=== PATIENT | female | born 1950 | race Caucasian/White ===

== ENCOUNTER 2018-12-26 12:08 | Observation (INO) | payer OTHER, BC ==
--- NOTE | 2018-12-26 13:47 | EDPHY ---
H & P Smoking Status: Former smoker Time Seen by Provider: 12/26/18 13:21 HPI/ROS: Chief complaint. Coughing up blood HPI. 60-year-old female presents emergency department with coughing up blood today. She was discharged yesterday from [facility]. She apparently had a lung cancer tumor pressing on the superior vena cava calling causing swelling to her face and arm and right breast. She had stents placed. She takes Xarelto as a blood thinner but has not taken any Xarelto since yesterday morning. This morning she spit up blood twice. No chest pain or shortness of breath. No fever cough. No abdominal pain or vomiting. She believes that she coughed the blood. No unusual leg pain or swelling ROS 10 systems were reviewed and negative with the exception of the elements mentioned in the history of present illness (David Schultz) Past Medical/Surgical History: Lung cancer, COPD, CHF, diabetes, pneumonia (David Schultz) Social History: Single, nonsmoker, no alcohol (David Schultz) Physical Exam: General Appearance: Alert well-developed female mild distress vital signs are stable Eyes: Pupils equal and round no pallor or injection. ENT, no evidence of bleeding from the nose. Pharynx without injection or evidence of blood Respiratory: There are no retractions, lungs are clear to auscultation. Cardiovascular: Regular rate and rhythm. Gastrointestinal: Abdomen is soft and nontender, no masses, bowel sounds normal. Neurological: Awake and alert, sensory and motor exams grossly normal. Skin: Warm and dry, no rashes. Musculoskeletal: Neck is supple nontender. Extremities symmetrical, full range of motion. Psychiatric: Patient is oriented X 3, there is no agitation. (David Schultz) Constitutional: Initial Vital Signs Temperature (C) 37.1 C 12/26/18 12:20 Heart Rate 90 12/26/18 12:20 Respiratory Rate 16 12/26/18 12:20 Blood Pressure 129/77 H 12/26/18 12:20 O2 Sat (%) 95 12/26/18 12:20 O2 Delivery Mode Nasal Cannula O2 (L/minute) 4 Allergies/Adverse Reactions: eszopiclone [From Lunesta] Allergy (Verified 12/26/18 12:19) topiramate [From Topamax] Allergy (Verified 12/26/18 12:19) Medical Decision Making - Diagnostics Imaging Results: Imaging Impressions Chest X-Ray 12/26/18 13:50 Impression: New right basilar atelectasis and trace right pleural effusion. Chest/Thorax CTA 12/26/18 14:30 Impression: 1. No evidence of acute pulmonary embolism. 2. Right hilar mass compresses and deforms and potentially is invading the lower trachea and right main bronchus. Potentially the etiology for hemoptysis. 3. Right middle lobe and right lower lobe atelectasis has not significantly changed. 4. New bilateral brachiocephalic vein and superior vein stents. The stents are moderately compressed by the right hilar mass. Findings discussed with Emergency Department physician, Dr. David Schultz on December 26, 2018 at 1639 hours. Chest x-ray interpreted by me shows right basilar atelectasis with trace right pleural effusion (David Schultz) Procedures: IV normal saline, monitor (David Schultz) ED Course/Re-evaluation: 1500: Patient is signed out to me at change of shift by Dr. Schultz. Patient is awaiting CT imaging. Of note the patient was anemic with hematocrit of 28. Previous hematocrit was 31. Patient also has hyponatremia with a sodium of 130. I compared this with previous value of 128. CT angio chest: Please refer the dictated report by Dr. Garay. There is no pulmonary embolus. Patient does have a noted mass. There is no active extravasation. The stents as visualized appear to be in good placement. I discussed the results with the patient. I answered all her questions. I contacted her oncologist. Patient requested and was given food I discussed case with Dr. Bowers from Oncology. She recommended admission. I discussed this plan with the patient. I answered all her questions. I discussed the case with Dr. Payne from the hospitalist service. (Mary Garcia) Differential Diagnosis: My differential includes but is not limited to bronchitis, pneumonia, pulmonary embolus, upper GI bleed, Milly-Love tear, peptic ulcer disease (Mary Garcia) Care Turn Over: Care is turned over to Dr. Garcia at 3:00 p.m. (David Schultz) - Data Points Laboratory Results: Laboratory Results 12/26/18 13:25 12/26/18 13:25 12/26/18 12/26/1812/26/19 13:25 13:25 13:25 WBC 6.05 10^3/uL 10^3/uL (3.80-9.50) RBC 3.57 10^6/uL L 10^6/uL (4.18-5.33) Hgb 8.9 g/dL L g/dL (12.6-16.3) Hct 28.5 % L % (38.0-47.0) MCV 79.8 fL L fL (81.5-99.8) MCH 24.9 pg L pg (27.9-34.1) MCHC 31.2 g/dL L g/dL (32.4-36.7) RDW 17.0 % H % (11.5-15.2) Plt Count 161 10^3/uL 10^3/uL (150-400) MPV 9.8 fL fL (8.7-11.7) Neut % (Auto) 74.8 % H % (39.3-74.2) Lymph % (Auto) 16.0 % % (15.0-45.0) Owen % (Auto) 7.8 % % (4.5-13.0) Eos % (Auto) 0.8 % % (0.6-7.6) Baso % (Auto) 0.3 % % (0.3-1.7) Nucleat RBC Rel Count 0.0 % % (0.0-0.2) Absolute Neuts (auto) 4.52 10^3/uL 10^3/uL (1.70-6.50) Absolute Lymphs (auto) 0.97 10^3/uL L 10^3/uL (1.00-3.00) Absolute Monos (auto) 0.47 10^3/uL 10^3/uL (0.30-0.80) Absolute Eos (auto) 0.05 10^3/uL 10^3/uL (0.03-0.40) Absolute Basos (auto) 0.02 10^3/uL 10^3/uL (0.02-0.10) Absolute Nucleated RBC 0.00 10^3/uL 10^3/uL (0-0.01) Immature Gran % 0.3 % % (0.0-1.1) Immature Gran # 0.02 10^3/uL 10^3/uL (0.00-0.10) PT 14.5 SEC SEC (12.0-15.0) INR 1.18 H (0.83-1.16) APTT 40.3 SEC H SEC (23.0-38.0) D-Dimer 1.72 ug/mLFEU H ug/mLFEU (0.00-0.50) Sodium 130 mEq/L L mEq/L (135-145) Potassium 3.9 mEq/L mEq/L (3.5-5.2) Chloride 91 mEq/L L mEq/L (97-110) Carbon Dioxide 29 mEq/l mEq/l (22-31) Anion Gap 10 mEq/L mEq/L (6-14) BUN 12 mg/dL mg/dL (7-23) Creatinine 0.7 mg/dL mg/dL (0.6-1.0) Estimated GFR > 60 Glucose 291 mg/dL H mg/dL (70-100) Calcium 8.5 mg/dL mg/dL (8.5-10.4) Medications Given: Discontinued Medications Sodium Chloride (Ns) 500 mls @ 0 mls/hr IV EDNOW ONE; Wide Open PRN Reason: Protocol Stop: 12/26/18 14:35 Last Admin: 12/26/18 15:06 Dose: 500 mls Departure - Departure Disposition: [facility] Inpatient Acute Clinical Impression: Hemoptysis Condition: Good Referrals: NONE *PRIMARY CARE P,. [Primary Care Provider] - As per Instructions
[2018-12-26 13:56] LABS: PLATELET COUNT 161 10^3/uL (150-400)
[2018-12-26 14:05] LABS: INR 1.18 (0.83-1.16); PROTIME(PATIENT) 14.5 SEC (12.0-15.0)
[2018-12-26] MEDS ORDERED: NS 500 ML IV ONE (14:34)
[2018-12-26] MEDS ORDERED: IOPAMIDOL (ISOVUE 370) 100 ML BTL IV ONE (15:07)
[2018-12-26] MEDS ORDERED: CEFAZOLIN 2 GM/DEXTROSE/100 ML BAG IV ONE (17:10)
[2018-12-26] MEDS ORDERED: ONDANSETRON 4 MG/2 ML VIAL ONE (17:11)
[2018-12-26] MEDS ORDERED: ONDANSETRON 4 MG/2 ML VIAL IVP PRN (18:08)
[2018-12-26] MEDS ORDERED: ONDANSETRON DISINTEGRATING 4 MG TAB PO PRN ×2 (18:08→18:44)
[2018-12-26] MEDS ORDERED: ACETAMINOPHEN 325 MG TAB PO PRN (18:08)
[2018-12-26] MEDS ORDERED: IPRATROPIUM/ALBUTEROL 3 ML DEYVIAL ONE (18:18)
--- NOTE | 2018-12-26 19:16 | GHP ---
[f rep st] HISTORY AND PHYSICAL DATE OF ADMISSION: 12/26/2018 Patient is a pleasant 68-year-old female with a relatively recent diagnosis of lung cancer in the rig ht hilum, was diagnosed because she had some shortness of breath. She has some chest imaging and sub sequently was admitted to the hospital. It sounds like [facility] in [place] where she g ets a lot of her care with the tissue biopsy. She has seen Dr. Palmer here and was going to begin radiation treatment. She was recently admitted there for what sounds like superior vena cava syndrome and had stents place d in her superior vena cava in the left brachiocephalic vein. She was due to start Xarelto for what sounds like VT prophylaxis from the stents which she has not started yet. She does take a daily aspi rin. She was discharged from the hospital yesterday. This morning, she had a couple episodes of neetu ght red blood of hemoptysis. They were probably about an inch and half or so in diameter. There was no mucus with it. She is not having fever, chills. She has not any more dyspneic than usual. This is the first time this has happened. REVIEW OF SYSTEMS: Complete 10-point review of systems conducted and negative except as noted in HPI . PAST MEDICAL HISTORY: Seizure disorder of uncertain etiology, recently diagnosed lung cancer, COPD, heart failure of uncertain type, history of peptic ulcer disease, diabetes. ALLERGIES: Lunesta and Topamax. HOME MEDICATIONS: Aspirin, albuterol, amitriptyline, ascorbic acid, Bumex, cyanocobalamin, duloxetin e, folic acid, Neurontin 800 three times daily, insulin, Duo nebs, levetiracetam, levocetirizine, met oclopramide, montelukast, morphine sulfate 60 daily, this is extended-release; Percocet 10/325, panto prazole, pramipexole, pyridoxine, simvastatin, spironolactone, sucralfate. SOCIAL HISTORY: She is a former smoker. Originally from [facility]. Daughter works here in [employer]. FAMILY HISTORY: Parents . PHYSICAL EXAMINATION: VITAL SIGNS: Temp 36.3, blood pressure 183/81, pulse 80, breathing times a minute, 97% on 4 L. GENERAL: No acute distress. HEENT: Sclerae anicteric. Oropharynx clear. Mucous membranes moist. NECK: Supple. No lymphadenopathy or JVD. LUNGS: Clear to auscultation bilaterally. HEART: S1, S2. ABDOMEN: Soft, nontender, nondistended. LOWER EXTREMITIES: Edema, brittni ves nontender. SKIN: Without rash. NEUROLOGIC: Nonfocal. BREAST: Her right breast remains a bit rip atous and erythematous. This was much more swollen with her SVC syndrome. CTA of the chest shows patent stents with some extrinsic compression. Unchanged hilar mass and no pu lmonary embolism. Chest x-ray shows clear lungs, right hilar mass. I have discussed the case with Dr. David Schultz. LABS: Sodium 130, potassium 3.9, chloride 91, bicarb 29, BUN 12, creatinine 0.7, glucose 291. D-dim er is elevated at 1.7. INR is 1.2. White count 6, hematocrit 28.5. Her previous was 31.5 about 2 w eeks ago. Platelets are 161,000. ASSESSMENT AND PLAN: 68-year-old female, recently diagnosed with lung cancer, here with hemoptysis. 1. Hemoptysis. I suspect this is secondary to either the mass eroding into the airway which is ment ioned on the CAT scan. This may be prompted somewhat by the reperfusion of the mass from the venous stents. For now, she is no longer having hemoptysis. I will hold her aspirin, not start her Xarelto and follow her progress. She does not have pulmonary embolism. 2. Hyponatremia. This is mild, will follow. 3. Anemia. This is microcytic. I will check iron studies in the morning. 4. Lung cancer. Is due to start radiation on Thursday. I do not see this as a contraindication. 5. Chronic obstructive pulmonary disease. She is currently on oxygen. Will continue inhalers. 6. Heart failure. I suspect this is diastolic heart failure. We will follow. 7. History of transient ischemic attack. I am going to hold her aspirin given her hemoptysis. 8. Prophylaxis SCDs. Pharmacologic prophylaxis contraindicated. DISPOSITION: Observation status. To be seen by Oncology in the morning. /[id number]/MODL
[2018-12-26] MEDS: oxyCODONE IR 5 MG TAB PO PRN (19:40)
[2018-12-26] MEDS: OXYCODONE/APAP 5/325 TAB PO PRN (19:40)
[2018-12-26] MEDS: SUCRALFATE 1 GM TAB PO SCH (20:23)
[2018-12-26] MEDS: GABAPENTIN 400 MG CAP PO SCH (20:23)
[2018-12-26] MEDS: levETIRAcetam 250 MG TAB PO SCH (20:23)
[2018-12-26] MEDS: METOCLOPRAMIDE 10 MG TAB PO SCH (20:24)
[2018-12-26] MEDS: PANTOPRAZOLE SODIUM 40 MG TAB PO SCH (20:24)
[2018-12-26] MEDS: PRAMIPEXOLE 1 MG TAB PO SCH (20:24)
[2018-12-26] MEDS ORDERED: INSULIN GLARGINE 100 UNITS/ML UNIT SC SCH (21:00)
[2018-12-26] MEDS ORDERED: AMITRIPTYLINE HCL 10 MG TAB PO SCH (21:00)
[2018-12-26] MEDS: ALBUTEROL 60 PUFFS/8 GM MDI IH PRN (21:56)
[2018-12-26] MEDS: IPRATROPIUM/ALBUTEROL 3 ML DEYVIAL IH PRN (21:59)
[2018-12-27] MEDS: ALBUTEROL 60 PUFFS/8 GM MDI IH PRN (04:25)
[2018-12-27 05:12] LABS: PLATELET COUNT 179 10^3/uL (150-400)
[2018-12-27] MEDS: IPRATROPIUM/ALBUTEROL 3 ML DEYVIAL IH PRN ×2 (05:30→09:10)
[2018-12-27] MEDS: SUCRALFATE 1 GM TAB PO SCH ×2 (05:33→13:21)
[2018-12-27] MEDS: METOCLOPRAMIDE 10 MG TAB PO SCH ×2 (05:33→13:21)
[2018-12-27] MEDS: GABAPENTIN 400 MG CAP PO SCH (08:17)
[2018-12-27] MEDS: OXYCODONE/APAP 5/325 TAB PO PRN ×2 (08:20→14:45)
[2018-12-27] MEDS: oxyCODONE IR 5 MG TAB PO PRN ×2 (08:20→14:45)
[2018-12-27] MEDS: PANTOPRAZOLE SODIUM 40 MG TAB PO SCH (08:21)
[2018-12-27] MEDS: PRAMIPEXOLE 1 MG TAB PO SCH (08:33)
[2018-12-27] MEDS: levETIRAcetam 250 MG TAB PO SCH (08:33)
[2018-12-27] MEDS ORDERED: MONTELUKAST SODIUM 10 MG TAB PO SCH (09:00)
[2018-12-27] MEDS ORDERED: BUMETANIDE 2 MG TAB PO SCH (09:00)
[2018-12-27] MEDS ORDERED: SPIRONOLACTONE 25 MG TAB PO SCH (09:00)
[2018-12-27] MEDS ORDERED: DULoxetine 60 MG CAP PO SCH (09:00)
[2018-12-27] MEDS ORDERED: morphINE SR 30 MG TAB PO SCH (09:00)
[2018-12-27] MEDS ORDERED: FOLIC ACID 1 MG TAB PO SCH (09:00)
[2018-12-27] MEDS ORDERED: ATORVASTATIN CALCIUM 20 MG TAB PO SCH (09:00)
[2018-12-27] MEDS ORDERED: CYANO/VITAMIN B12 100 MCG TAB PO SCH (09:00)
[2018-12-27] MEDS ORDERED: Herbals/Supplements -Info Only PO SCH (09:00)
[2018-12-27] MEDS ORDERED: CETIRIZINE 10 MG TAB PO SCH (09:00)
[2018-12-27] MEDS ORDERED: ASCORBIC ACID 500 MG TAB PO SCH (09:00)
[2018-12-27] MEDS ORDERED: PYRIDOXINE HCL 100 MG TAB PO SCH (09:00)
[2018-12-27 11:32] VITALS: BP 144/62
--- NOTE | 2018-12-27 13:53 | PDCONSULT ---
Asphalt Distributor Operator Note: Hematology/oncology consultation note Reason for consultation: Hemoptysis with no non-small cell lung cancer History of present illness: Flor is a 68-year-old female with history of non-small cell lung cancer is admitted for hemoptysis. She is known to our practice and follows Dr. Rony Palmer. She initially presented November of 2018 with symptoms of worsening shortness of breath. She had a CT of the chest that demonstrated a right perihilar mass with associated lymphadenopathy. She did have a biopsy that demonstrated a non-small cell lung cancer that was TTF 1 negative. The plan is to proceed with chemoradiation with carbotaxol. Radiation is to start tomorrow. She was admitted to [facility] for 3 episodes of hemoptysis in quitting to a tsp worth. Her symptoms have since resolved. Her blood counts were stable. She did start aspirin prior to admission due to a recent brachiocephalic stent placement at [facility] due to concerns for SVC syndrome. Past medical and surgical history: Non-small cell lung cancer COPD Diabetes Congestive heart failure Cirrhosis Family history: Noncontributory Social history: She has a 50 year pack year smoking quit in June 2018. She previously lived in [place] and recently moved to [place] in May 2018. Allergies: Reviewed in the EMR Medications: Reviewed in the EMR Review of systems: 12 point review systems was obtained and was otherwise Physical examination: Temp Pulse Resp BP Pulse Ox 36.7 C 84 18 144/62 H 95 12/27/18 11:24 12/27/18 11:24 12/27/18 11:24 12/27/18 11:24 12/27/18 11:24 O2 (L/minute) 5 General: Pleasant-appearing female in no acute distress HEENT: Oropharynx clear extra movements intact Pulmonary: Clear to auscultation bilaterally scattered wheezing noted Cardiovascular: Regular rhythm no murmurs gallops or rubs Psych: Appropriate affect Neuro: Moving all extremities Skin: No skin lesions Abdomen: Soft nontender nondistended bowel sounds are present Extremities: No cyanosis clubbing or edema WBC 6.25 10^3/uL (3.80-9.50) 12/27/18 04:20 RBC 3.76 10^6/uL (4.18-5.33) L 12/27/18 04:20 Hgb 9.0 g/dL (12.6-16.3) L 12/27/18 04:20 Hct 30.1 % (38.0-47.0) L 12/27/18 04:20 MCV 80.1 fL (81.5-99.8) L 12/27/18 04:20 MCH 23.9 pg (27.9-34.1) L 12/27/18 04:20 MCHC 29.9 g/dL (32.4-36.7) L 12/27/18 04:20 RDW 17.2 % (11.5-15.2) H 12/27/18 04:20 Plt Count 179 10^3/uL (150-400) 12/27/18 04:20 MPV 10.0 fL (8.7-11.7) 12/27/18 04:20 Neut % (Auto) 73.0 % (39.3-74.2) 12/27/18 04:20 Lymph % (Auto) 16.5 % (15.0-45.0) 12/27/18 04:20 Barton % (Auto) 8.6 % (4.5-13.0) 12/27/18 04:20 Eos % (Auto) 1.1 % (0.6-7.6) 12/27/18 04:20 Baso % (Auto) 0.3 % (0.3-1.7) 12/27/18 04:20 Nucleat RBC Rel Count 0.0 % (0.0-0.2) 12/27/18 04:20 Absolute Neuts (auto) 4.56 10^3/uL (1.70-6.50) 12/27/18 04:20 Absolute Lymphs (auto) 1.03 10^3/uL (1.00-3.00) 12/27/18 04:20 Absolute Monos (auto) 0.54 10^3/uL (0.30-0.80) 12/27/18 04:20 Absolute Eos (auto) 0.07 10^3/uL (0.03-0.40) 12/27/18 04:20 Absolute Basos (auto) 0.02 10^3/uL (0.02-0.10) 12/27/18 04:20 Absolute Nucleated RBC 0.00 10^3/uL (0-0.01) 12/27/18 04:20 Immature Gran % 0.5 % (0.0-1.1) 12/27/18 04:20 Immature Gran # 0.03 10^3/uL (0.00-0.10) 12/27/18 04:20 PT 14.5 SEC (12.0-15.0) 12/26/18 13:25 INR 1.18 (0.83-1.16) H 12/26/18 13:25 APTT 40.3 SEC (23.0-38.0) H 12/26/18 13:25 D-Dimer 1.72 ug/mLFEU (0.00-0.50) H 12/26/18 13:25 Sodium 132 mEq/L (135-145) L 12/27/18 04:20 Potassium 4.4 mEq/L (3.5-5.2) 12/27/18 04:20 Chloride 97 mEq/L (97-110) 12/27/18 04:20 Carbon Dioxide 26 mEq/l (22-31) 12/27/18 04:20 Anion Gap 9 mEq/L (6-14) 12/27/18 04:20 BUN 10 mg/dL (7-23) 12/27/18 04:20 Creatinine 0.6 mg/dL (0.6-1.0) 12/27/18 04:20 3/ Estimated GFR > 60 12/27/18 04:20 Glucose 154 mg/dL (70-100) H 12/27/18 04:20 POC Glucose 150 mg/dL (70-100) H 12/27/18 08:53 Calcium 8.8 mg/dL (8.5-10.4) 12/27/18 04:20 Magnesium 1.8 mg/dL (1.6-2.3) 12/27/18 04:20 Iron 26.0 mcg/dL (37.0-170.0) L 12/27/18 04:20 TIBC 389 ug/dL (260-490) 12/27/18 04:20 Iron Saturation 7 % (20-55) L 12/27/18 04:20 Ferritin 13.8 ng/mL (6.2-264.0) 12/27/18 04:20 12/26/2018 CT of the chest demonstrates a 7 x 5.5cm right hilar mass. Assessment plan Flor is a 68-year-old female with history of stage III non-small cell lung cancer who was admitted for hemoptysis. 1. Hemoptysis secondary to lung cancer: Her hemoglobin is stable hemoptysis has resolved. I explained to her that some of this could be related to her recent aspirin initiation. I recommend holding aspirin and Xarelto. We did review the risk of InStent thrombosis with regards to venous clots. Given the hemoptysis I would hold her anti-platelet anticoagulation. She needs to start on radiation which is scheduled for tomorrow. I will have her follow-up with Dr. Palmer this week. She is to return back to the hospital for hemoptysis worsens. 2. Non-small cell lung cancer, stage III: She is plan to start chemoradiation 3. COPD: Stable All questions were answered. She voiced understanding the plan. She was appreciate of my care today.
--- NOTE | 2018-12-27 13:58 | ASMTLACE ---
LACE Length of stay for Answers: Less than 1 day current admission Acuity / Level of Answers: No Care: Did the patient have an inpatient admission? Comorbidities - select Answers: Any tumor (including all that apply lymphoma or leukemia) Chronic pulmonary disease Congestive heart failure Diabetes (uncontrolled or controlled) Peptic ulcer disease Other Notes: Seizure disorder # of Emergency department Answers: 1-2 visits in the last 6 months Score: 11 Date Signed: 12/27/2018 01:57 PM Electronically Signed By:OFELIA Magana
--- NOTE | 2018-12-27 14:06 | ASDISCHSUM ---
Discharge Information Plan Status:Home with No Needs Medically Cleared to Leave:12/27/2018 Discharge Date:12/27/2018 CM D/C Disposition:Home, Routine, Self-Care ADT D/C Disposition:Home, Routine, Self-Care Projected Discharge Date:12/27/2018 Transportation at D/C:Family Discharge Delay Reason: Follow-Up Date:12/27/2018 Discharge Slot: Final Diagnosis: Placement Information Patient Contact Information Contact Name:HEATHER Relationship:Daughter Address: Work Phone: City: [facility] Phone: State/Zip Code: Email: Financial Information Financial Class:Medicare Primary Plan Desc:MEDICARE OUTPATIENT Primary Plan Number:[id number] Secondary Plan Desc: OUT OF STATE INDEMNITY Secondary Plan Number:[id number] Assessment Information LACE LACE Length of stay for Answers: Less than 1 day current admission Acuity / Level of Answers: No Care: Did the patient have an inpatient admission? Comorbidities - select Answers: Any tumor (including all that apply lymphoma or leukemia) Chronic pulmonary disease Congestive heart failure Diabetes (uncontrolled or controlled) Peptic ulcer disease Other Notes: Seizure disorder # of Emergency department Answers: 1-2 visits in the last 6 months Score: 11 Date Signed: 12/27/2018 01:57 PM Electronically Signed By:OFELIA Magana Case Management Discharge Plan Note Case Management Discharge Discharge Order Complete? Answers: Yes Patient to Obtain Answers: Independently Medications Transportation Arranged Answers: Family/Friends Discharge Comments Notes: Pt was admitted with hemoptysis which has resolved. She was discharged from [facility] yesterday after placement of a brachiocephalic stent. She has a new dx of lung CA and is scheduled to begin radiation tomorrow. She will follow up with her oncologist. Pt is discharging home today with no CM needs. Date Signed: 12/27/2018 02:05 PM Electronically Signed By:OFELIA Magana Intervention Information Intervention Type:*MARIUM-Signed Date of Service:12/27/2018 12:18 PM Patient Type:Observation Staff Member:Barbara Connors Hours: Discipline: Severity: Comment:
--- NOTE | 2018-12-27 15:19 | GDS ---
[f rep st] DISCHARGE SUMMARY DISCHARGE DIAGNOSES: 1. Hemoptysis. 2. Hyponatremia. 3. Iron deficiency anemia. 4. 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 5. Chronic obstructive pulmonary disease. 6. Diastolic heart failure. 7. History of transient ischemic attack. 8. Chronic hypoxic respiratory failure on 4 liters. HISTORY OF PRESENT ILLNESS: A 68-year-old female with recent diagnosis of lung cancer in the right hilum. She is followed by Dr. Palmer, and they plan to start radiation treatment tomorrow. She was admitted to [facility] for SVC syndrome and had stents placed in the SVC and left brachiocephalic vein. She was due to start Xarelto for prophylaxis, but she had not started this medication. She has been taking aspirin 325 daily. She was discharged from the hospital yesterday. Yesterday after going home, she had 3 episodes of hemoptysis, the size of teaspoons. None since admission. No dizziness or lightheadedness. 1. Hemoptysis. resolved. CTA negative for pulmonary embolism, but showed a right hilar mass compressing and invading lower trachea and right main bronchus. At this time would hold all anticoagulation. Can likely resume baby aspirin later this week. She is to see Dr. Palmer on the . 2. SCC lung cancer complicated by SVC syndrome: Stents recently placed at [facility] and ultimate treatment would be radiation and chemotherapy. Hold off anticoagulation. Hypovolemic hyponatremia. Sodium at baseline 132. 3. History of TIA: Statin. Holding aspirin. DISPOSITION: Patient is stable for discharge home. MEDICATIONS: Hold aspirin and Xarelto. FOLLOWUP: Dr. Palmer. PHYSICAL EXAMINATION: VITAL SIGNS: Temperature 36.7, blood pressure 144/60, heart rate in the 80s, respirations 18, 95% on 5 L. GENERAL: She is well appearing, sitting in bed in no acute distress. HEENT: PERRLA. Moist mucous membranes. CV: Diminished breath throughout. No wheezes or crackles. ABDOMEN : Soft, nontender, nondistended. Positive bowel sounds. MUSCULOSKELETAL: 5/ 5 upper lower extremity strength. NEURO: 2 through 12 intact. PSYCH: Alert and oriented x3. TIME SPENT ON DISCHARGE: Greater than 30 minutes at bedside evaluating patient and coordinating discharge. Case discussed with Dr. Campos with Oncology. /[id number]/MODL MTDD
== END 2018-12-27 15:34 | disposition home or self-care (01) ==
LOC: F1N 17:35
PROVIDERS: ADMIT Internal Medicine; ATTEND Internal Medicine
DX: C34.01 Malignant neoplasm of right main bronchus (principal); R04.2 Hemoptysis; D50.9 Iron deficiency anemia, unspecified; J44.9 Chronic obstructive pulmonary disease, unspecified; I50.30 Unspecified diastolic (congestive) heart failure; Z86.73 Personal history of transient ischemic attack (TIA), and cerebral infarction without residual deficits; E87.1 Hypo-osmolality and hyponatremia
CPT/HCPCS: 71046; 71275; 96360; 96372; 97165; 99285; G0378; J1815; Q9967; J0690; J2405

== ENCOUNTER 2019-01-04 08:53 | Day surgery (SDC) | payer OTHER, BC ==
[2019-01-04] MEDS ORDERED: MIDAZOLAM 2 MG/2 ML VIAL IVP PRN (08:56)
[2019-01-04] MEDS ORDERED: FLUMAZENIL 0.5 MG/5 ML MDV IVP PRN (08:56)
[2019-01-04] MEDS ORDERED: NALOXONE HCL 0.4 MG/ML INJ IVP PRN (08:56)
[2019-01-04] MEDS ORDERED: fentaNYL 100 MCG/2 ML INJ IVP PRN (08:56)
[2019-01-04] MEDS ORDERED: ceFAZolin 2 GM/DEXTROSE 100 ML IV ONE (08:56)
[2019-01-04] MEDS ORDERED: NS 1,000 ML IV SCH (09:00)
[2019-01-04] MEDS ORDERED: LIDOCAINE 1% 300 MG/30 ML SDV ONE (09:01)
[2019-01-04 09:54] LABS: INR 1.03 (0.83-1.16); PROTIME(PATIENT) 13.1 SEC (12.0-15.0)
--- NOTE | 2019-01-04 10:27 | PDPROPOC ---
Sedation Plan of Care Sedation Plan of Care: vital signs stable, mental status noted, patient educated of risks, benefits, alternatives, patient can tolerate sedation ASA Classification: ASA 2 Planned drugs: fentanyl, midazolam Mallampati Score: Class 3 Mallampati Reference Image: Patient passed 3-3-2 rule?: Yes
--- NOTE | 2019-01-04 10:28 | PDRADPRE ---
Radiology History & Physical Indication for procedure: cancer (Need for termite technician central access for chemotherapy) Home medications: Albuterol [Proventil Inhaler HFA (*)] 1 - 2 puffs IH Q4H PRN 12/26/18 [Last Taken 01/04/19] Amitriptyline HCl 10 mg PO HS 12/26/18 [Last Taken 01/04/19] Ascorbic Acid [Vitamin C 500 mg (*)] 500 mg PO DAILY 12/26/18 [Last Taken ] Bumetanide 2 mg PO DAILY 12/26/18 [Last Taken 12/26/18] Cyanocobalamin [Vitamin B12 (*)] 300 mcg PO DAILY 12/26/18 [Last Taken 01/04/19] Duloxetine HCl 60 mg PO DAILY 12/26/18 [Last Taken 01/04/19] Folic Acid [Folic Acid 1 MG (*)] 1 mg PO DAILY 12/26/18 [Last Taken 01/04/19] Gabapentin [Gabapentin 800 mg] 800 mg PO TID 12/26/18 [Last Taken 01/04/19] Herbals/Supplements -Info Only 1 ea PO DAILY 12/26/18 [Last Taken 01/04/19] Insulin Degludec [Tresiba Flextouch U-100] 16 units SC HS 12/26/18 [Last Taken 01/04/19] Ipratropium/Albuterol [Duoneb (*)] 3 ml IH Q4H PRN 12/26/18 [Last Taken 01/04/19 ] Levocetirizine Dihydrochloride [24Hr Allergy Relief] 5 mg PO DAILY 12/26/18 [ Last Taken 01/04/19] Metoclopramide [Reglan 10 mg tab (*)] 15 mg PO QID 12/26/18 [Last Taken 01/04/19 ] Montelukast Sodium [Singulair 10 mg (*)] 10 mg PO DAILY 12/26/18 [Last Taken ] Morphine Sulfate [Morphine Sulfate ER] 60 mg PO BID 12/26/18 [Last Taken 08:00] Ondansetron HCl 4 mg PO Q6H PRN 12/26/18 [Last Taken 01/04/19] Pantoprazole Sodium [Protonix 40mg (*)] 40 mg PO BID 12/26/18 [Last Taken ] Pramipexole Di-HCl [Mirapex 1 mg (*)] 1 mg PO TID 12/26/18 [Last Taken 01/04/19] Pyridoxine HCl [Vitamin B-6 100 mg (*)] 100 mg PO DAILY 12/26/18 [Last Taken ] Simvastatin 40 mg PO DAILY 12/26/18 [Last Taken 01/04/19] Spironolactone [Aldactone 25 MG (*)] 25 mg PO DAILY 12/26/18 [Last Taken ] Sucralfate 1 g PO QID 12/26/18 [Last Taken 01/04/19] levETIRAcetam [Keppra 250 mg (*)] 250 mg PO BID 12/26/18 [Last Taken 01/04/19] oxyCODONE HCL/ACETAMINOPHEN [Percocet 10-325 mg Tablet] 1 each PO QID PRN [Last Taken 01/04/19] glipiZIDE [Glipizide] 5 mg PO BIDMEAL 12/27/18 [Last Taken 01/04/19] Aspirin 325 mg (*) 325 mg DAILY 12/30/18 [Last Taken 12/31/18] Breo Ellipta 100-25 Mcg INH 25 mcg PUFF DAILY 01/04/19 [Last Taken 01/04/19] Allergies/Adverse Reactions: eszopiclone [From Lunesta] Allergy (Verified 12/26/18 12:19) topiramate [From Topamax] Allergy (Verified 12/26/18 12:19) Mental status: A&Ox3 Heart exam: regular rate and rhythm Lungs exam: clear to auscultation Mallampati Score: Class 3
[2019-01-04] MEDS ORDERED: ALBUTEROL 3 ML DEYVIAL IH ONE (10:30)
[2019-01-04] MEDS ORDERED: NALOXONE HCL 0.4 MG/ML INJ ONE (10:32)
[2019-01-04] MEDS ORDERED: fentaNYL 100 MCG/2 ML INJ ONE (10:32)
[2019-01-04] MEDS ORDERED: FLUMAZENIL 0.5 MG/5 ML MDV IVP ONE (10:32)
[2019-01-04] MEDS ORDERED: MIDAZOLAM 2 MG/2 ML VIAL ONE (10:32)
[2019-01-04] MEDS ORDERED: ONDANSETRON 4 MG/2 ML VIAL IVP PRN (11:27)
[2019-01-04] MEDS ORDERED: ACETAMINOPHEN 325 MG TAB PO PRN (11:27)
--- NOTE | 2019-01-04 11:29 | PDRADPN ---
Radiology Procedure Note Date of Procedure: 01/04/19 Radiologist: Roldan Jewell Anesthesia: IV Sedation Pre-op Diagnosis: Lung Cancer Post-op Diagnosis: Lung Cancer Indication: Need for care home access for chemotherapy Procedure: Chest port placement Finding(s): Right IJ chest port placed without complication. Bard 8 Fr ClearVue Power Port ok for power injections and external beam radiation therapy. Inf/Abcess present in the surg proc area at time of surgery?: No
[2019-01-04 13:22] VITALS: BP 114/67
== END 2019-01-04 13:18 | disposition home or self-care (01) ==
LOC: FIMAGING 08:53
PROVIDERS: ATTEND Internal Medicine Hematology & Oncology
PROC: 0JH60XZ Insertion of Tunneled Vascular Access Device into Chest Subcutaneous Tissue and Fascia, Open Approach (ICD-10-PCS; principal; 2019-01-04 11:38)
PROC: 02H633Z Insertion of Infusion Device into Right Atrium, Percutaneous Approach (ICD-10-PCS; principal; 2019-01-04 11:38)
DX: Z45.2 Encounter for adjustment and management of vascular access device (principal); C34.90 Malignant neoplasm of unspecified part of unspecified bronchus or lung
CPT/HCPCS: 36561; 99152; C1769; 82947-QW; J0690; J1642; J2250; J2310; J3010; J7613

== ENCOUNTER → 2019-01-11 | Outpatient (CLI) | payer OTHER, BC ==
[~2019-01-11] MED LIST: GADOBUTROL 10 ML VIAL IVP ONE; IOPAMIDOL (ISOVUE 370) 100 ML BTL IV ONE
== END ==
LOC: FIMAGING 01-07 14:46
PROVIDERS: ATTEND Internal Medicine Hematology & Oncology
DX: C34.02 Malignant neoplasm of left main bronchus (principal)
CPT/HCPCS: 76000; J1642; Q9967; A9585

== ENCOUNTER 2019-01-17 22:09 | Emergency (ER) | payer OTHER, BC ==
--- NOTE | 2019-01-17 23:36 | EDPHY ---
H & P Stated Complaint: ams, foul smelling urine possible uti Time Seen by Provider: 01/17/19 22:32 HPI/ROS: Chief Complaint: Possible UTI HPI: 68-year-old woman who is currently being treated for small cell lung cancer, under the care Dr. Palmer. Patient is presenting with foul-smelling urine for the last few days with some dysuria. She has a history of urinary tract infections in the past. Family is notice some increasing confusion as well. No nausea or vomiting. Denies any abdominal pain. She has an appointment with her primary care physician tomorrow but family suggested she be evaluated tonight. No chest pain or shortness of breath. No lightheadedness or fainting. She is currently on chemotherapy, last received it last through her port. ROS: 10 systems were reviewed and were negative except those elements noted in the HPI. PMH: COPD, small cell lung cancer, frequent UTIs Social History: History of smoking Family History: non-contributory Physical Exam: Gen: Awake, Alert, No Distress HEENT: Nose: no rhinorrhea Eyes: PERRLA, EOMI Mouth: Moist mucosa Neck: Supple, no JVD Chest: nontender, lungs clear to auscultation Heart: S1, S2 normal, no murmur Abd: Soft, non-tender, no guarding Back: no CVA tenderness, no midline tenderness Ext: no edema, non-tender Skin: no rash Neuro: CN II-XII intact, Sensation grossly intact, Strength 5/5 in bilateral upper and lower extremities - Personal History Current Tetanus Diphtheria and Acellular Pertussis (TDAP): Yes - Medical/Surgical History Hx Asthma: No Hx Chronic Respiratory Disease: Yes Hx Diabetes: Yes Hx Cardiac Disease: Yes Hx Renal Disease: Yes Hx Cirrhosis: No Hx Alcoholism: No Hx HIV/AIDS: No Hx Splenectomy or Spleen Trauma: No Other PMH: non small cell carcinoma, COPD, CHF, DM2, SHARI, sepsis, PNA - Social History Smoking Status: Former smoker Constitutional: Initial Vital Signs Temperature (C) 37.1 C 01/17/19 22:20 Heart Rate 97 01/17/19 22:20 Respiratory Rate 16 01/17/19 22:20 Blood Pressure 142/79 H 01/17/19 22:20 O2 Sat (%) 97 01/17/19 22:20 O2 Delivery Mode Room Air O2 (L/minute) 4 Allergies/Adverse Reactions: eszopiclone [From Lunesta] Allergy (Verified 12/26/18 12:19) topiramate [From Topamax] Allergy (Verified 12/26/18 12:19) Home Medications: Medication Instructions Recorded Albuterol [Proventil Inhaler HFA 1 - 2 puffs IH Q4H PRN 12/26/18 (*)] Amitriptyline HCl 10 mg PO HS 12/26/18 Ascorbic Acid [Vitamin C 500 mg 500 mg PO DAILY 12/26/18 (*)] Bumetanide 2 mg PO DAILY 12/26/18 Cyanocobalamin [Vitamin B12 (*)] 300 mcg PO DAILY 12/26/18 Duloxetine HCl 60 mg PO DAILY 12/26/18 Folic Acid [Folic Acid 1 MG (*)] 1 mg PO DAILY 12/26/18 Gabapentin [Gabapentin 800 mg] 800 mg PO TID 12/26/18 Herbals/Supplements -Info Only 1 ea PO DAILY 12/26/18 Insulin Degludec [Tresiba 16 units SC HS 12/26/18 Flextouch U-100] Ipratropium/Albuterol [Duoneb (*)] 3 ml IH Q4H PRN 12/26/18 Levocetirizine Dihydrochloride 5 mg PO DAILY 12/26/18 [24Hr Allergy Relief] Metoclopramide [Reglan 10 mg tab 15 mg PO QID 12/26/18 (*)] Montelukast Sodium [Singulair 10 10 mg PO DAILY 12/26/18 mg (*)] Morphine Sulfate [Morphine Sulfate 60 mg PO BID 12/26/18 ER] Ondansetron HCl 4 mg PO Q6H PRN 12/26/18 Pantoprazole Sodium [Protonix 40mg 40 mg PO BID 12/26/18 (*)] Pramipexole Di-HCl [Mirapex 1 mg 1 mg PO TID 12/26/18 (*)] Pyridoxine HCl [Vitamin B-6 100 mg 100 mg PO DAILY 12/26/18 (*)] Simvastatin 40 mg PO DAILY 12/26/18 Spironolactone [Aldactone 25 MG 25 mg PO DAILY 12/26/18 (*)] Sucralfate 1 g PO QID 12/26/18 levETIRAcetam [Keppra 250 mg (*)] 250 mg PO BID 12/26/18 oxyCODONE HCL/ACETAMINOPHEN 1 each PO QID PRN 12/26/18 [Percocet 10-325 mg Tablet] glipiZIDE [Glipizide] 5 mg PO BIDMEAL 12/27/18 Aspirin 325 mg (*) 325 mg DAILY 12/30/18 Breo Ellipta 100-25 Mcg INH 25 mcg PUFF DAILY 01/04/19 Cephalexin [Keflex (*)] 500 mg PO Q6H #28 cap 01/18/19 Medical Decision Making ED Course/Re-evaluation: 68-year-old cancer patient with urinary tract infection. She is not neutropenic. Vital signs are appropriate. She has been given ceftriaxone here. Urine cultures have been sent. Will discharge with Keflex and follow up with her oncologist. - Data Points Laboratory Results: Laboratory Results 01/17/19 23:31 01/17/19 23:31 01/17/19 01/17/19 01/17/19 23:41 23:31 23:31 WBC 3.19 10^3/uL L 10^3/uL (3.80-9.50) RBC 3.56 10^6/uL L 10^6/uL (4.18-5.33) Hgb 9.4 g/dL L g/dL (12.6-16.3) Hct 29.9 % L % (38.0-47.0) MCV 84.0 fL fL (81.5-99.8) MCH 26.4 pg L pg (27.9-34.1) MCHC 31.4 g/dL L g/dL (32.4-36.7) RDW 20.7 % H % (11.5-15.2) Plt Count 139 10^3/uL L 10^3/uL (150-400) MPV 9.8 fL fL (8.7-11.7) Neut % (Auto) 78.5 % H % (39.3-74.2) Lymph % (Auto) 14.7 % L % (15.0-45.0) [place] % (Auto) 5.6 % % (4.5-13.0) Eos % (Auto) 0.6 % % (0.6-7.6) Baso % (Auto) 0.3 % % (0.3-1.7) Nucleat RBC Rel Count 0.0 % % (0.0-0.2) Absolute Neuts (auto) 2.50 10^3/uL 10^3/uL (1.70-6.50) Absolute Lymphs (auto) 0.47 10^3/uL L 10^3/uL (1.00-3.00) Absolute Monos (auto) 0.18 10^3/uL L 10^3/uL (0.30-0.80) Absolute Eos (auto) 0.02 10^3/uL L 10^3/uL (0.03-0.40) Absolute Basos (auto) 0.01 10^3/uL L 10^3/uL (0.02-0.10) Absolute Nucleated RBC 0.00 10^3/uL 10^3/uL (0-0.01) Immature Gran % 0.3 % % (0.0-1.1) Immature Gran # 0.01 10^3/uL 10^3/uL (0.00-0.10) RBC/WBC/PLT Morphology TNP Platelet Estimate TNP Sodium 131 mEq/L L mEq/L (135-145) Potassium 4.0 mEq/L mEq/L (3.5-5.2) Chloride 99 mEq/L mEq/L (97-110) Carbon Dioxide 25 mEq/l mEq/l (22-31) Anion Gap 7 mEq/L mEq/L (6-14) BUN 11 mg/dL mg/dL (7-23) Creatinine 0.6 mg/dL mg/dL (0.6-1.0) Estimated GFR > 60 Glucose 142 mg/dL H mg/dL (70-100) Calcium 8.8 mg/dL mg/dL (8.5-10.4) Urine Color YELLOW Urine Appearance MODERATELY TURBID Urine pH 8.0 H (5.0-7.5) Ur Specific [place] 1.015 (1.002-1.030) Urine Protein NEGATIVE (NEGATIVE) Urine Ketones NEGATIVE (NEGATIVE) Urine Blood NEGATIVE (NEGATIVE) Urine Nitrate POSITIVE H (NEGATIVE) Urine Bilirubin NEGATIVE (NEGATIVE) Urine Urobilinogen 4.0 EU H EU (0.2-1.0) Ur Leukocyte Esterase TRACE H (NEGATIVE) Urine RBC NONE SEEN /hpf /hpf (0-3) Urine WBC 5-10 /hpf H /hpf (0-3) Ur Epithelial Cells TRACE /lpf /lpf (NONE-1+) Urine Bacteria 4+ /hpf H /hpf (NONE SEEN) Urine Glucose NEGATIVE (NEGATIVE) Medications Given: Discontinued Medications Heparin Sodium (Porcine) (Heparin Lock Flush) 500 unit IVP EDNOW ONE Stop: 01/18/19 01:09 Last Admin: 01/18/19 01:11 Dose: 500 unit Ceftriaxone Sodium/Dextrose (Rocephin 1 Gm (Premix)) 50 mls @ 100 mls/hr IV EDNOW ONE PRN Reason: Protocol Stop: 01/18/19 00:34 Last Admin: 01/18/19 00:24 Dose: 50 mls Departure - Departure Disposition: Home, Routine, Self-Care Clinical Impression: Urinary tract infection Condition: Good Instructions: Urinary Tract Infection in Women (ED) Additional Instructions: Follow up with Dr. Palmer, your oncologist tomorrow for further evaluation. Please take your full course of antibiotics. Return to the emergency department for increasing confusion, fevers or chills, chest pain, shortness of breath, weakness, or any other concerns. Referrals: Rony Palmer MD [Medical Doctor] - As per Instructions Prescriptions: Cephalexin [Keflex (*)] 500 mg PO Q6H #28 cap
[2019-01-17 23:47] LABS: PLATELET COUNT 139 10^3/uL (150-400)
[2019-01-18 01:16] VITALS: BP 130/65
== END 2019-01-18 01:14 | disposition home or self-care (01) ==
DX: N39.0 Urinary tract infection, site not specified (principal); C34.90 Malignant neoplasm of unspecified part of unspecified bronchus or lung; Z87.891 Personal history of nicotine dependence
CPT/HCPCS: 96365; 96375; 99284; J0696; J1642

== ENCOUNTER 2019-01-29 07:34 | Inpatient (IN) | payer OTHER, BC ==
[2019-01-29] MEDS ORDERED: NS 1,000 ML IV ONE (07:55)
--- NOTE | 2019-01-29 07:58 | EDPHY ---
H & P Time Seen by Provider: 01/29/19 07:44 HPI/ROS: CHIEF COMPLAINT: Altered mental status Limitations: Altered mental status, unable to provide any clinical history; history via EMS, no family present HISTORY OF PRESENT ILLNESS: 68-year-old female with diabetes and cancer, currently undergoing chemotherapy, presents with altered mental status. She was apparently found by her family this morning covered in urine and feces. The patient is unable to provide any further clinical history. REVIEW OF SYSTEMS: Unable to obtain Source: Patient - Medical/Surgical History Hx Asthma: No Hx Chronic Respiratory Disease: Yes Hx Diabetes: Yes Hx Cardiac Disease: Yes Hx Renal Disease: Yes Hx Cirrhosis: No Hx Alcoholism: No Hx HIV/AIDS: No Hx Splenectomy or Spleen Trauma: No Other PMH: non small cell carcinoma, COPD, CHF, DM2, SHARI, sepsis, PNA - Social History Smoking Status: Former smoker - Physical Exam Exam: General Appearance: Alert, follows commands, tries to answer questions Eyes: Pupils equal and round, no conjunctival pallor or injection ENT, Mouth: Mucous membranes dry Neck: Normal inspection Respiratory: Lungs are clear to auscultation anteriorly Cardiovascular: Regular rate and rhythm Gastrointestinal: Abdomen is soft and nontender Neurological: Alert, oriented to self, nonfocal exam Skin: Warm and dry Extremities: Normal inspection Psychiatric: Mood and affect normal Constitutional: Initial Vital Signs Temperature (C) 36.6 C 01/29/19 09:30 Heart Rate 89 01/29/19 09:30 Respiratory Rate 22 H 01/29/19 09:30 Blood Pressure 165/83 H 01/29/19 09:30 O2 Sat (%) 95 01/29/19 09:30 O2 Delivery Mode Room Air Allergies/Adverse Reactions: eszopiclone [From Lunesta] Allergy (Verified 01/29/19 09:33) topiramate [From Topamax] Allergy (Verified 01/29/19 09:33) Home Medications: Medication Instructions Recorded Albuterol [Proventil Inhaler HFA 2 puffs IH Q4H PRN 12/26/18 (*)] Amitriptyline HCl 10 mg PO HS 12/26/18 Bumetanide 2 mg PO DAILY 12/26/18 Duloxetine HCl 60 mg PO DAILY 12/26/18 Gabapentin [Gabapentin 800 mg] 800 mg PO TID 12/26/18 Herbals/Supplements -Info Only 1 ea PO DAILY 12/26/18 Insulin Degludec [Tresiba 16 units SC HS 12/26/18 Flextouch U-100] Ipratropium/Albuterol [Duoneb (*)] 3 ml IH Q4H PRN 12/26/18 Levocetirizine Dihydrochloride 5 mg PO DAILY 12/26/18 [24Hr Allergy Relief] Metoclopramide [Reglan 10 mg tab 15 mg PO QID 12/26/18 (*)] Montelukast Sodium [Singulair 10 10 mg PO DAILY 12/26/18 mg (*)] Morphine Sulfate [Morphine Sulfate 60 mg PO BID 12/26/18 ER] Ondansetron HCl 4 mg PO Q6H PRN 12/26/18 Pantoprazole Sodium [Protonix 40mg 40 mg PO BID 12/26/18 (*)] Pramipexole Di-HCl [Mirapex 1 mg 1 mg PO TID 12/26/18 (*)] Simvastatin 40 mg PO DAILY 12/26/18 Spironolactone [Aldactone 25 MG 25 mg PO DAILY 12/26/18 (*)] Sucralfate 1 gm PO QID 12/26/18 levETIRAcetam [Keppra 250 mg (*)] 250 mg PO BID 12/26/18 glipiZIDE [Glipizide] 5 mg PO BIDMEAL 12/27/18 Aspirin [Aspirin 325 mg (*)] 325 mg PO DAILY 12/30/18 Fluticasone/Vilanterol [Breo 1 each IH DAILY 01/04/19 Ellipta 100-25 Mcg INH] Dexamethasone [Decadron 4 MG (*)] 4 mg PO BIDMEAL 01/29/19 Diphenoxylate HCl/Atrop Sulf 1 tab PO QID PRN 01/29/19 [Lomotil Tab (*)] Fluticasone Nasal [Flonase Nasal 2 sprays NASAL DAILY 01/29/19 [place] (RX)] Folic Acid [Folic Acid 1 MG (*)] 1 mg PO DAILY 01/29/19 Insulin Aspart [novoLOG] 0 - 4 unit SC AD 01/29/19 Medical Decision Making - Diagnostics Imaging Results: Imaging Impressions Chest X-Ray 01/29/19 07:55 Impression: Negative for acute cardiopulmonary abnormality. Right-sided jugular central venous catheter.. Head CT 01/29/19 07:55 Impression: Normal noncontrast CT of the brain. Results called to Dr. Ai Luo at 8:30 AM at the time of the interpretation. Imaging: Discussed imaging studies w/ scallop binder Radiologist ED Course/Re-evaluation: This pt presents with AMS and dehydration. No localizing signs/sx on exam. IV NS 1 liter given. Will proceed with w/u for AMS. 0845: ED RN had phone conversation with pt's daughter. Pt lives with daughter. Pt found on toilet this am confused. Recently dx'd with UTI, hasn't started Levaquin yet. This is patient's typical behavior when she has a urinary tract infection. Cath UA obtained. No evidence of UTI. CXR reveals no evidence of pneumonia and CT head NAD. Labs also unremarkable, unclear etiology of AMS. Will need admission for further eval. The hospitalist service was consulted for admission. Differential Diagnosis: Altered mental status including but not limited to hypoglycemia, infectious process, electrolyte abnormality, head injury, CVA, and intoxicants. - Data Points Laboratory Results: Laboratory Results 01/29/19 09:00 01/29/19 09:00 01/29/19 01/29/19 01/29/19 09:25 09:00 09:00 WBC 4.52 10^3/uL 10^3/uL (3.80-9.50) RBC 4.21 10^6/uL 10^6/uL (4.18-5.33) Hgb 11.8 g/dL L g/dL (12.6-16.3) Hct 36.7 % L % (38.0-47.0) MCV 87.2 fL fL (81.5-99.8) MCH 28.0 pg pg (27.9-34.1) MCHC 32.2 g/dL L g/dL (32.4-36.7) RDW 23.9 % H % (11.5-15.2) Plt Count 148 10^3/uL L 10^3/uL (150-400) MPV 9.7 fL fL (8.7-11.7) Neut % (Auto) 83.0 % H % (39.3-74.2) Lymph % (Auto) 9.1 % L % (15.0-45.0) [place] % (Auto) 7.5 % % (4.5-13.0) Eos % (Auto) 0.0 % L % (0.6-7.6) Baso % (Auto) 0.0 % L % (0.3-1.7) Nucleat RBC Rel Count 0.0 % % (0.0-0.2) Absolute Neuts (auto) 3.75 10^3/uL 10^3/uL (1.70-6.50) Absolute Lymphs (auto) 0.41 10^3/uL L 10^3/uL (1.00-3.00) Absolute Monos (auto) 0.34 10^3/uL 10^3/uL (0.30-0.80) Absolute Eos (auto) 0.00 10^3/uL L 10^3/uL (0.03-0.40) Absolute Basos (auto) 0.00 10^3/uL L 10^3/uL (0.02-0.10) Absolute Nucleated RBC 0.00 10^3/uL 10^3/uL (0-0.01) Immature Gran % 0.4 % % (0.0-1.1) Seg Neutrophils % 86.0 % % Band Neutrophils % 0.0 % % Lymphocytes % 5.0 % % Monocytes % 9.0 % % Eosinophils % 0.0 % % Basophils % 0.0 % % Metamyelocytes % 0.0 % % Myelocytes % 0.0 % % Promyelocytes % 0.0 % % Blast Cells % 0.0 % % Immature Gran # 0.02 10^3/uL 10^3/uL (0.00-0.10) Absolute Seg Neuts 3.89 10^3/uL 10^3/uL (1.70-6.50) Absolute Band Neuts 0.00 10^3/uL 10^3/uL (0.00-0.70) Absolute Lymphocytes 0.23 10^3/uL L 10^3/uL (1.00-3.00) Absolute Monocytes 0.41 10^3/uL 10^3/uL (0.30-0.80) Absolute Eosinophils 0.00 10^3/uL L 10^3/uL (0.03-0.40) Absolute Basophils 0.00 10^3/uL L 10^3/uL (0.02-0.10) Absolute Metamyelocyte 0.00 10^3/mL 10^3/mL (0.00-0.00) Absolute Myelocytes 0.00 10^3/mL 10^3/mL (0.00-0.00) Absolute Promyelocytes 0.00 10^3/uL 10^3/uL (0.00-0.00) Absolute Plasma Cells 0.00 10^3/uL 10^3/uL (0.00-0.00) Nucleated RBCs 0 /100 WBC /100 WBC (0-0) Absolute Blast Cells 0.00 10^3/uL 10^3/uL (0.00-0.00) Plasma Cells % 0.0 % % Platelet Estimate DECREASED L (ADEQ) Microcytic Cells 1+ H Oval Macrocytes 1+ H Sodium 135 mEq/L mEq/L (135-145) Potassium 4.4 mEq/L mEq/L (3.5-5.2) Chloride 93 mEq/L L mEq/L (97-110) Carbon Dioxide 31 mEq/l mEq/l (22-31) Anion Gap 11 mEq/L mEq/L (6-14) BUN 26 mg/dL H mg/dL (7-23) Creatinine 0.7 mg/dL mg/dL (0.6-1.0) Estimated GFR > 60 Glucose 158 mg/dL H mg/dL (70-100) Calcium 8.9 mg/dL mg/dL (8.5-10.4) Total Bilirubin 1.0 mg/dL mg/dL (0.1-1.4) Conjugated Bilirubin 0.4 mg/dL mg/dL (0.0-0.5) Unconjugated Bilirubin 0.6 mg/dL mg/dL (0.0-1.1) AST 59 IU/L H IU/L (14-46) ALT 47 IU/L IU/L (9-52) Alkaline Phosphatase 86 IU/L IU/L (38-126) Total Protein 7.5 g/dL g/dL (6.3-8.2) Albumin 4.2 g/dL g/dL (3.5-5.0) Specimen Hemolysis 104 Urine Color YELLOW Urine Appearance MODERATELY TURBID Urine pH 7.0 (5.0-7.5) Ur Specific [place] 1.018 (1.002-1.030) Urine Protein NEGATIVE (NEGATIVE) Urine Ketones NEGATIVE (NEGATIVE) Urine Blood NEGATIVE (NEGATIVE) Urine Nitrate NEGATIVE (NEGATIVE) Urine Bilirubin NEGATIVE (NEGATIVE) Urine Urobilinogen NEGATIVE EU EU (0.2-1.0) Ur Leukocyte Esterase NEGATIVE (NEGATIVE) Urine Glucose NEGATIVE (NEGATIVE) Medications Given: Dexamethasone (Decadron) 4 mg PO BIDMEAL KAYLA Stop: 07/28/19 17:59 Last Admin: 01/29/19 17:46 Dose: 4 mg Diphenoxylate HCl/Atropine (Lomotil) 1 tab PO QID PRN PRN Reason: Diarrhea/Loose Stools Stop: 07/28/19 16:16 Last Admin: 01/29/19 17:46 Dose: 1 tab Ceftriaxone Sodium/Dextrose (Rocephin 1 Gm (Premix)) 50 mls @ 100 mls/hr IV DAILY KAYLA PRN Reason: Protocol Stop: 02/28/19 16:29 Last Admin: 01/29/19 16:41 Dose: 50 mls Ondansetron HCl (Zofran) 4 mg IVP Q4HRS PRN PRN Reason: Nausea/Vomiting, Can't Take PO Stop: 07/28/19 11:57 Last Admin: 01/29/19 16:41 Dose: 4 mg Oxycodone/Acetaminophen (Percocet 5/325) 1 tab PO Q4HRS PRN PRN Reason: Pain, Severe Able to Take PO Stop: 02/08/19 16:45 Last Admin: 01/29/19 16:56 Dose: 1 tab Discontinued Medications Sodium Chloride (Ns) 1,000 mls @ 0 mls/hr IV ONCE ONE; Wide Open PRN Reason: Protocol Stop: 01/29/19 07:56 Last Admin: 01/29/19 09:39 Dose: 1,000 mls Departure - Departure Disposition: [facility] Clinical Impression: Altered mental status Qualifiers: Altered mental status type: unspecified Qualified Code(s): R41.82 - Altered mental status, unspecified Condition: Fair
[2019-01-29 09:18] LABS: PLATELET COUNT 148 10^3/uL (150-400)
--- NOTE | 2019-01-29 11:00 | ASMTCMCOM ---
CM Note CM Note Notes: Reviewed chart. Pt presented to the Emergency Department via EMS with altered mental status. 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 Pt lives alone and has two daughters listed as her emergency contacts. Per EMS report, pt was found by her family in urine and feces. Pt is currently undergoing chemotherapy. The pt receives most of her medical care at [facility]. Discharge needs remain unclear at this time. CM will continue to follow. Discharge Plan: To be determined Date Signed: 01/29/2019 10:59 AM Electronically Signed By:Adela Oquendo RN
--- NOTE | 2019-01-29 11:46 | PDGENHP ---
History and Physical - Chief Complaint confusion - History of Present Illness Flor reyes is a 60-year-old female with recent diagnosis of stage IIIC adenocarcinoma of the lung who was brought in after family found her confused on her toilet covered in feces and urine. Per the daughter the patient was recently diagnosed with urinary tract infection and had not been started on antibiotics yet. The patient told me that she was brought in because she was confused and could remember coming in this morning. She could not remember last night, or this morning. She knew her name, what year it is what month it is who the president is and where she was but could not remember the day of the week. When asked about localizing symptoms the patient said she has "pain all over". She denied any abdominal pain, chest pain, nausea, vomiting, fevers chills or other symptoms. History Information - Allergies/Home Medication List Allergies/Adverse Reactions: eszopiclone [From Lunesta] Allergy (Verified 01/29/19 09:33) topiramate [From Topamax] Allergy (Verified 01/29/19 09:33) Home Medications: Albuterol [Proventil Inhaler HFA (*)] 2 puffs IH Q4H PRN 12/26/18 [Last Taken ] Amitriptyline HCl 10 mg PO HS 12/26/18 [Last Taken 01/04/19] Bumetanide 2 mg PO DAILY 12/26/18 [Last Taken 12/26/18] Duloxetine HCl 60 mg PO DAILY 12/26/18 [Last Taken 01/04/19] Gabapentin [Gabapentin 800 mg] 800 mg PO TID 12/26/18 [Last Taken 01/04/19] Herbals/Supplements -Info Only 1 ea PO DAILY 12/26/18 [Last Taken 01/04/19] Insulin Degludec [Tresiba Flextouch U-100] 16 units SC HS 12/26/18 [Last Taken 01/04/19] Ipratropium/Albuterol [Duoneb (*)] 3 ml IH Q4H PRN 12/26/18 [Last Taken 01/04/19 ] Levocetirizine Dihydrochloride [24Hr Allergy Relief] 5 mg PO DAILY 12/26/18 [ Last Taken 01/04/19] Metoclopramide [Reglan 10 mg tab (*)] 15 mg PO QID 12/26/18 [Last Taken 01/04/19 ] Montelukast Sodium [Singulair 10 mg (*)] 10 mg PO DAILY 12/26/18 [Last Taken ] Morphine Sulfate [Morphine Sulfate ER] 60 mg PO BID 12/26/18 [Last Taken 08:00] Ondansetron HCl 4 mg PO Q6H PRN 12/26/18 [Last Taken 01/04/19] Pantoprazole Sodium [Protonix 40mg (*)] 40 mg PO BID 12/26/18 [Last Taken ] Pramipexole Di-HCl [Mirapex 1 mg (*)] 1 mg PO TID 12/26/18 [Last Taken 01/04/19] Simvastatin 40 mg PO DAILY 12/26/18 [Last Taken 01/04/19] Spironolactone [Aldactone 25 MG (*)] 25 mg PO DAILY 12/26/18 [Last Taken ] Sucralfate 1 gm PO QID 12/26/18 [Last Taken 01/04/19] levETIRAcetam [Keppra 250 mg (*)] 250 mg PO BID 12/26/18 [Last Taken 01/04/19] glipiZIDE [Glipizide] 5 mg PO BIDMEAL 12/27/18 [Last Taken 01/04/19] Aspirin [Aspirin 325 mg (*)] 325 mg PO DAILY 12/30/18 [Last Taken 12/31/18] Fluticasone/Vilanterol [Breo Ellipta 100-25 Mcg INH] 1 each IH DAILY 01/04/19 [ Last Taken 01/04/19] Dexamethasone [Decadron 4 MG (*)] 4 mg PO BIDMEAL 01/29/19 [Last Taken Unknown] Diphenoxylate HCl/Atrop Sulf [Lomotil Tab (*)] 1 tab PO QID PRN 01/29/19 [Last Taken Unknown] Fluticasone Nasal [Flonase Nasal [place] (RX)] 2 sprays NASAL DAILY 01/29/19 [ Last Taken Unknown] Folic Acid [Folic Acid 1 MG (*)] 1 mg PO DAILY 01/29/19 [Last Taken Unknown] Insulin Aspart [novoLOG] 0 - 4 unit SC AD 01/29/19 [Last Taken Unknown] I have personally reviewed and updated: family history, medical history, social history, surgical history - Past Medical History Additional medical history: Heart failure, seizure disorder, recently diagnosed stage IIIC lung cancer, COPD on 4 L chronically, insulin-dependent diabetes, peptic ulcer disease reported history of TIA - Surgical History Reports: no pertinent surgical hx - Family History Positive for: non-pertinent - Social History Smoking Status: Former smoker Alcohol Use: None Drug Use: None Review of Systems Review of Systems: ROS: 10pt was reviewed & negative except for what was stated in HPI & below Physical Exam Physical Exam: Temp Pulse Resp BP Pulse Ox 36.6 C 89 22 H 165/83 H 95 01/29/19 09:30 01/29/19 09:30 01/29/19 09:30 01/29/19 09:30 01/29/19 09:30 Constitutional: chronically ill appearing, obese Eyes: PERRL, anicteric sclera Ears, Nose, Mouth, Throat: moist mucous membranes, hearing normal Cardiovascular: regular rate and rhythym, no murmur, rub, or gallop Respiratory: no respiratory distress, clear to auscultation Gastrointestinal: normoactive bowel sounds, soft, non-tender abdomen, no palpable masses Genitourinary: no bladder fullness, no bladder tenderness Skin: warm, normal color, no rashes or abrasions, no fluctuance, no induration, No mottled Musculoskeletal: full muscle strength, no muscle tenderness, normal joint ROM, no joint effusions Neurologic: CN II-XII Intact, other (New her name, where she was the year and the president, why she was brought in but could not remember the day of the week.) Psychiatric: not anxious Lymph, Heme, Immunologic: no cervical LAD Lab Data & Imaging Review 02/01/19 05:42 02/01/19 05:42 WBC 4.52 10^3/uL (3.80-9.50) 01/29/19 09:00 RBC 4.21 10^6/uL (4.18-5.33) 01/29/19 09:00 Hgb 11.8 g/dL (12.6-16.3) L 01/29/19 09:00 Hct 36.7 % (38.0-47.0) L 01/29/19 09:00 MCV 87.2 fL (81.5-99.8) 01/29/19 09:00 MCH 28.0 pg (27.9-34.1) 01/29/19 09:00 MCHC 32.2 g/dL (32.4-36.7) L 01/29/19 09:00 RDW 23.9 % (11.5-15.2) H 01/29/19 09:00 Plt Count 148 10^3/uL (150-400) L 01/29/19 09:00 MPV 9.7 fL (8.7-11.7) 01/29/19 09:00 Neut % (Auto) 83.0 % (39.3-74.2) H 01/29/19 09:00 Lymph % (Auto) 9.1 % (15.0-45.0) L 01/29/19 09:00 [place] % (Auto) 7.5 % (4.5-13.0) 01/29/19 09:00 Eos % (Auto) 0.0 % (0.6-7.6) L 01/29/19 09:00 Baso % (Auto) 0.0 % (0.3-1.7) L 01/29/19 09:00 Nucleat RBC Rel Count 0.0 % (0.0-0.2) 01/29/19 09:00 Absolute Neuts (auto) 3.75 10^3/uL (1.70-6.50) 01/29/19 09:00 Absolute Lymphs (auto) 0.41 10^3/uL (1.00-3.00) L 01/29/19 09:00 Absolute Monos (auto) 0.34 10^3/uL (0.30-0.80) 01/29/19 09:00 Absolute Eos (auto) 0.00 10^3/uL (0.03-0.40) L 01/29/19 09:00 Absolute Basos (auto) 0.00 10^3/uL (0.02-0.10) L 01/29/19 09:00 Absolute Nucleated RBC 0.00 10^3/uL (0-0.01) 01/29/19 09:00 Immature Gran % 0.4 % (0.0-1.1) 01/29/19 09:00 Seg Neutrophils % 86.0 % 01/29/19 09:00 Band Neutrophils % 0.0 % 01/29/19 09:00 Lymphocytes % 5.0 % 01/29/19 09:00 Monocytes % 9.0 % 01/29/19 09:00 Eosinophils % 0.0 % 01/29/19 09:00 Basophils % 0.0 % 01/29/19 09:00 Metamyelocytes % 0.0 % 01/29/19 09:00 Myelocytes % 0.0 % 01/29/19 09:00 Promyelocytes % 0.0 % 01/29/19 09:00 Blast Cells % 0.0 % 01/29/19 09:00 Immature Gran # 0.02 10^3/uL (0.00-0.10) 01/29/19 09:00 Absolute Seg Neuts 3.89 10^3/uL (1.70-6.50) 01/29/19 09:00 Absolute Band Neuts 0.00 10^3/uL (0.00-0.70) 01/29/19 09:00 Absolute Lymphocytes 0.23 10^3/uL (1.00-3.00) L 01/29/19 09:00 Absolute Monocytes 0.41 10^3/uL (0.30-0.80) 01/29/19 09:00 Absolute Eosinophils 0.00 10^3/uL (0.03-0.40) L 01/29/19 09:00 Absolute Basophils 0.00 10^3/uL (0.02-0.10) L 01/29/19 09:00 Absolute Metamyelocyte 0.00 10^3/mL (0.00-0.00) 01/29/19 09:00 Absolute Myelocytes 0.00 10^3/mL (0.00-0.00) 01/29/19 09:00 Absolute Promyelocytes 0.00 10^3/uL (0.00-0.00) 01/29/19 09:00 Absolute Plasma Cells 0.00 10^3/uL (0.00-0.00) 01/29/19 09:00 Nucleated RBCs 0 /100 WBC (0-0) 01/29/19 09:00 Absolute Blast Cells 0.00 10^3/uL (0.00-0.00) 01/29/19 09:00 Plasma Cells % 0.0 % 01/29/19 09:00 Platelet Estimate DECREASED (ADEQ) L 01/29/19 09:00 Microcytic Cells 1+ H 01/29/19 09:00 Oval Macrocytes 1+ H 01/29/19 09:00 Sodium 135 mEq/L (135-145) 01/29/19 09:00 Potassium 4.4 mEq/L (3.5-5.2) 01/29/19 09:00 Chloride 93 mEq/L (97-110) L 01/29/19 09:00 Carbon Dioxide 31 mEq/l (22-31) 01/29/19 09:00 Anion Gap 11 mEq/L (6-14) 01/29/19 09:00 BUN 26 mg/dL (7-23) H 01/29/19 09:00 Creatinine 0.7 mg/dL (0.6-1.0) 01/29/19 09:00 Estimated GFR > 60 01/29/19 09:00 Glucose 158 mg/dL (70-100) H 01/29/19 09:00 Calcium 8.9 mg/dL (8.5-10.4) 01/29/19 09:00 Total Bilirubin 1.0 mg/dL (0.1-1.4) 01/29/19 09:00 Conjugated Bilirubin 0.4 mg/dL (0.0-0.5) 01/29/19 09:00 Unconjugated Bilirubin 0.6 mg/dL (0.0-1.1) 01/29/19 09:00 AST 59 IU/L (14-46) H 01/29/19 09:00 ALT 47 IU/L (9-52) 01/29/19 09:00 Alkaline Phosphatase 86 IU/L (38-126) 01/29/19 09:00 Total Protein 7.5 g/dL (6.3-8.2) 01/29/19 09:00 Albumin 4.2 g/dL (3.5-5.0) 01/29/19 09:00 Specimen Hemolysis 104 01/29/19 09:00 Urine Color YELLOW 01/29/19 09:25 Urine Appearance MODERATELY TURBID 01/29/19 09:25 Urine pH 7.0 (5.0-7.5) 01/29/19 09:25 Ur Specific [place] 1.018 (1.002-1.030) 01/29/19 09:25 Urine Protein NEGATIVE (NEGATIVE) 01/29/19 09:25 Urine Ketones NEGATIVE (NEGATIVE) 01/29/19 09:25 Urine Blood NEGATIVE (NEGATIVE) 01/29/19 09:25 Urine Nitrate NEGATIVE (NEGATIVE) 01/29/19 09:25 Urine Bilirubin NEGATIVE (NEGATIVE) 01/29/19 09:25 Urine Urobilinogen NEGATIVE EU (0.2-1.0) 01/29/19 09:25 Ur Leukocyte Esterase NEGATIVE (NEGATIVE) 01/29/19 09:25 Urine Glucose NEGATIVE (NEGATIVE) 01/29/19 09:25 Assessment & Plan Assessment: 68-year-old female with recent diagnosis of stage IIIC carcinoma of the lung admitted with altered mental status Altered mental status- daughter notes the patient was recently diagnosed with a urinary tract infection, but patient's urine not consistent with infection here. She apparently was much worse in the emergency room initially but she was alert and oriented x3 for me. I am more suspicious of polypharmacy as the cause of the patient's confusion but given her comorbidities I find it reasonable to treat for possible underlying urinary tract infection. She takes Elavil, Cymbalta, Neurontin, Reglan, MS Contin, Percocet, and Mirapex all of which could be contributing. I reviewed the CT head which shows no acute abnormality on my read and nothing that would explain her symptoms. -abx -urinalysis -culture -hold sedating meds COPD- she is at her baseline oxygen requirement of 4 L and does not sound wheezy or tight on examination. Continue her home inhalers and titrate oxygen as needed. History of heart failure-continue home Bumex and Aldactone. Recent diagnosis of SVC syndrome- started on Xarelto, and aspirin but then was admitted for hemoptysis and these were held. Status post stent placement under SVC at [facility] on December 24 2018. History of TIA- was on aspirin and statin need to confirm if aspirin has been restarted. Peptic ulcer disease- continue home PPI Normocytic anemia- appears to be chronic and actually improved from previous. No evidence of current bleed. Monitor Thrombocytopenia- has been ongoing since about the beginning of January. Will need to monitor and continues to drop workup further, stop heparin if it drops below 100 Stage IIIC carcinoma of the long- follows with Dr. Palmer with [facility]. -consult Oncology while here -per daughter on chemo radiation currently -onc consulted -cont decadron seizure disorder- patient unable to elaborate but is on very low dose keppra. she says she "has been known to have seizures in the past". will cont keppra. Prophylaxis- SCDs in low molecular weight heparin Fluids- taking adequate p.o. For now Electrolytes within normal limits Nutrition cardiac diet Cor full Dispo observation for altered mental status
[2019-01-29] MEDS ORDERED: ACETAMINOPHEN 325 MG TAB PO PRN (11:58)
[2019-01-29] MEDS ORDERED: ALBUTEROL 3 ML DEYVIAL IH PRN (11:58)
[2019-01-29] MEDS ORDERED: D50W 25 GM/50 ML SYR IVP PRN (12:02)
[2019-01-29] MEDS: ONDANSETRON 4 MG/2 ML VIAL IVP PRN (16:41)
[2019-01-29] MEDS: OXYCODONE/APAP 5/325 TAB PO PRN (16:56)
[2019-01-29] MEDS: DIPHENOXYLATE/ATROPINE LOMOTIL 1 TAB PO PRN ×2 (17:46→23:32)
[2019-01-29] MEDS: DEXAMETHASONE 4 MG TAB PO SCH (17:46)
[2019-01-29] MEDS: INSULIN LISPRO 100 UNIT/ML SC SCH (17:55)
[2019-01-29] MEDS: HYDROmorphONE/DILAUDID 1 MG/ML INJ IVP PRN ×2 (19:30→23:31)
[2019-01-29] MEDS: levETIRAcetam 250 MG TAB PO SCH (23:03)
[2019-01-29] MEDS: SUCRALFATE 1 GM TAB PO SCH (23:04)
[2019-01-29] MEDS: PANTOPRAZOLE SODIUM 40 MG TAB PO SCH (23:04)
[2019-01-29] MEDS: morphINE SR 60 MG TAB PO SCH (23:04)
[2019-01-29] MEDS: PRAMIPEXOLE 1 MG TAB PO SCH (23:04)
[2019-01-30] MEDS: HYDROmorphONE/DILAUDID 1 MG/ML INJ IVP PRN ×5 (03:08→17:43)
[2019-01-30] MEDS: ONDANSETRON 4 MG/2 ML VIAL IVP PRN ×4 (03:08→23:08)
[2019-01-30 05:22] LABS: PLATELET COUNT 119 10^3/uL (150-400)
[2019-01-30] MEDS ORDERED: ALTEPLASE 2 MG VIAL IVP PRN (08:24)
[2019-01-30] MEDS ORDERED: SPIRONOLACTONE 25 MG TAB PO SCH (09:00)
[2019-01-30] MEDS ORDERED: BUMETANIDE 2 MG TAB PO SCH (09:00)
--- NOTE | 2019-01-30 09:21 | PDCONSULT ---
Help Desk Specialist Note: Patient is a 68-year-old female getting concurrent chemoradiation fir stage IIIC lung cancer who presents to the hospital with delirium and encephalopathy. Patient is being followed as an outpatient by Dr. Palmer for carboplatin/ taxol for stage IIIc lung cancer. Office note from 01/27/2019 does report patient with complaints of diarrhea while completing course of Keflex for UTI which was identified for the 01/17/2019. Chart notes from 01/28/2019 report the patient's daughter called reporting that the patient was acting funny and this was felt to be perhaps secondary to UTI - however her urine was totally normal on 01/28/2019. She was prescribed Levaquin for UTI. She presented 01/29/2019 to the ER for encephalopathy. CT of the head without contrast was normal, chest x- ray was unremarkable, urinalysis was normal. C. difficile PCR came back positive. Recent brain MRI on 01/14/2019 was without evidence of intracranial metastatic disease. Unfortunately patient is not able to give a reliable history. In response to most of my questions she says "yes" however cannot go into any more detail. She does report she feels sick but cannot localize any symptoms. Past medical history: COPD on chronic oxygen Diabetes Congestive heart failure Cirrhosis with portal hypertension noted on CT imaging Social history: Patient has a roughly [id number] smoking history quitting in June 2018. She denies any history of alcohol use. She moved to [place] in May 2018 and she lives with her daughter Taryn Family history: No family history of malignancy or hematologic disorder in first-degree relatives as per the electronic medical record Review of systems: Complete review of systems is unable to be obtained secondary to patient's encephalopathy/clinical condition Physical examination: Vital signs reviewed General: Delirious female appears younger than stated age, in no acute distress nontoxic-appearing HEENT: No scleral icterus or conjunctival pallor is appreciated patient with open up her eyelids for a more thorough examination, oral mucosa appears dry without any oral pharyngeal lesions Neck: Supple Cardiovascular: Regular rate and rhythm with a 2 out of 6 systolic murmur best heard throughout the precordium Chest: Clear to auscultation in anterior lung chen Abdomen: Soft, nondistended, some right upper quadrant discomfort to deep palpation, no rebound no guarding Extremities: Warm and well perfused 2+ dorsalis pedis and radial pulses bilaterally with trace bilateral lower extremity edema Neurologic: Patient is oriented to person, she is moving all of her extremities spontaneously. She keeps her eyes closed for the entirety of examination Skin: Erythematous plaque right intertriginous fold medication allergies and allergies reviewed medical record Assessment and plan: Patient is a 68-year-old female with a history of stage IIIc non-small cell lung cancer currently on chemotherapy and radiation presents for acute encephalopathy. Problem #1-acute encephalopathy Clearly multifactorial. Likely a combination of deleriotegenic medications such as dexamethasone, perhaps Levaquin, narcotics and infection with C. difficile. Plan: -We will stop the patient's dexamethasone - which at best she has been on for roughly 5 days so no taper needed - will stop PPI and Carafate given diagnosis of C. difficile. -Will stop bumex and spironolactone given diarrhea -treat c. difficile infection, stop other antibiotics -has CT evidence of cirrhosis, may need to consider ammonia level based on clinical response to above We will continue to follow along.
[2019-01-30] MEDS: ENOXAPARIN 40 MG/0.4 ML SYR SC SCH (09:39)
[2019-01-30] MEDS: Fluticasone/Vilanterol [Breo Ellipta 100-25 Mcg Inh] 1 EACH IH SCH (09:59)
[2019-01-30] MEDS: INSULIN LISPRO 100 UNIT/ML SC SCH ×3 (10:57→18:59)
[2019-01-30] MEDS: PANTOPRAZOLE SODIUM 40 MG TAB PO SCH (11:00)
[2019-01-30] MEDS: PROMETHAZINE HCL 25 MG/ML INJ IVP PRN ×2 (11:09→18:59)
[2019-01-30] MEDS: VANCOMYCIN 125 MG/2.5 ML UDL PO SCH ×3 (11:22→12:09)
[2019-01-30] MEDS: NS 1,000 ML IV SCH (12:03)
[2019-01-30] MEDS: levETIRAcetam 250 MG TAB PO SCH ×3 (12:08→23:15)
[2019-01-30] MEDS: ASPIRIN 325 MG TAB PO SCH (12:08)
[2019-01-30] MEDS: MONTELUKAST SODIUM 10 MG TAB PO SCH (12:08)
[2019-01-30] MEDS: FOLIC ACID 1 MG TAB PO SCH (12:08)
[2019-01-30] MEDS: PRAMIPEXOLE 1 MG TAB PO SCH ×3 (12:09→23:15)
[2019-01-30] MEDS: morphINE SR 60 MG TAB PO SCH ×2 (12:09→23:15)
[2019-01-30] MEDS: DEXAMETHASONE 4 MG TAB PO SCH (12:37)
[2019-01-30] MEDS: SUCRALFATE 1 GM TAB PO SCH (12:37)
--- NOTE | 2019-01-30 13:10 | CPEKG ---
Test Reason : OPEN Blood Pressure : / mmHG Vent. Rate : 080 BPM Atrial Rate : 080 BPM P-R Int : 175 ms QRS Dur : 108 ms QT Int : 416 ms P-R-T Axes : 064 -58 069 degrees QTc Int : 480 ms Sinus rhythm LAD, consider left anterior fascicular block Confirmed by Olga Ureña ([id number]) on 01/30/2019 1:09:48 PM Referred By: Daryl Sinclair Confirmed By:Olga Ureña
--- NOTE | 2019-01-30 14:01 | HOSPPROG ---
Hospitalist Progress Note Assessment/Plan: 68-year-old female with recent diagnosis of stage IIIC carcinoma of the lung admitted with altered mental status, found to have c diff. Encephalopathy- daughter notes the patient was recently diagnosed with a urinary tract infection, but patient's urine not consistent with infection here. yesterday oriented, but overnight much more confused and agitated. may be due to metabolic encephalopathy, cdiff, compounded with meds. CT with no explanation of cause -abx -urinalysis -culture -hold sedating meds Cdiff- was found in stool. Gi pathogen panel obtained and positive for Cdiff. initially started on oral vancomycin, but then patient became agitated and refused and so started on IV flagyl 500mg Q8h. -cont flagyl -contact precautions. COPD- she is at her baseline oxygen requirement of 4 L and does not sound wheezy or tight on examination. Continue her home inhalers and titrate oxygen as needed. History of heart failure-bumex and aldactone held given her diarrhea. Recent diagnosis of SVC syndrome- started on Xarelto, and aspirin but then was admitted for hemoptysis and these were held. Status post stent placement under SVC at [facility] on December 24 2018. History of TIA- cont asa/statin as able Peptic ulcer disease- hold PPI with cdiff. Normocytic anemia- appears to be chronic and actually improved from previous. No evidence of current bleed. Monitor Thrombocytopenia- has been ongoing since about the beginning of January. Will need to monitor and continues to drop workup further, stop heparin if it drops below 100 Stage IIIC carcinoma of the long- follows with Dr. Palmer with [facility]. -consult Oncology while here -per daughter on chemo radiation currently -Onc following -discussed with oncology and plan to stop decadron. seizure disorder- patient unable to elaborate but is on very low dose keppra. she says she "has been known to have seizures in the past". will cont keppra. Prophylaxis- SCDs in low molecular weight heparin Fluids- taking adequate p.o. For now Electrolytes within normal limits Nutrition cardiac diet Cor full Dispo- inpatient for cdiff, encephalopathy. Subjective: patient says she hurts all over. cannot specify where. Objective: Vital Signs Temp Pulse Resp BP Pulse Ox 36.1 C 76 16 164/93 H 100 01/30/19 11:54 01/30/19 11:54 01/30/19 13:10 01/30/19 13:10 01/30/19 11:54 Microbiology 01/29/19 11:35 Gastrointestinal Tract Panel (PCR) - Final Stool Clostridium Difficile Detected Laboratory Results 01/30/19 04:42 01/30/19 04:42 01/29/19 01/30/19 01/31/19 05:59 05:59 05:59 Intake Total 1100 Output Total 1575 650 Balance -475 -650 - Physical Exam Constitutional: obese, uncomfortable Eyes: PERRL, anicteric sclera, EOMI Ears, Nose, Mouth, Throat: moist mucous membranes, hearing normal, ears appear normal, no oral mucosal ulcers Cardiovascular: regular rate and rhythym, no murmur, rub, or gallop Respiratory: no respiratory distress, no rales or rhonchi, clear to auscultation Gastrointestinal: soft, non-tender abdomen Genitourinary: no bladder fullness, no bladder tenderness, no renal bruits Skin: no rashes or abrasions, no fluctuance, no induration Musculoskeletal: full muscle strength, no muscle tenderness, normal joint ROM Neurologic: other (waxing and waning. oriented at times but then other times will not answer questions. ) Psychiatric: encephalopathic Lymph, Heme, Immunologic: no cervical LAD, no supraclavicular LAD ICD10 Worksheet Patient Problems: Problems Problem Status Onset Altered mental status Acute Hemoptysis Acute
[2019-01-30] MEDS: hydrALAZINE 20 MG/ML VIAL IVP PRN (15:26)
--- NOTE | 2019-01-30 17:48 | PDMN ---
Medical Necessity Medical necessity: Pt meets IP criteria as of 01/30/2019 per and MCG M-170 ( Gastroenteritis); los > 2 mn for ongoing tx and management of C.diff infection as well as encephalopathy; requiring IV ABX, contact precautions, and pain management (IVP dilaudid and morphine). Hx stage IIIC carcinoma of the lung, COPD, DM II, heart failure, anemia, thrombocytopenia, peptic ulcer disease and seizure disorder.
[2019-01-30] MEDS: levETIRAcetam 500 MG/5 ML UDCUP PO ONE ×2 (23:08→23:14)
[2019-01-31] MEDS: HYDROmorphONE/DILAUDID 1 MG/ML INJ IVP PRN ×4 (01:53→18:35)
[2019-01-31] MEDS: OXYCODONE/APAP 5/325 TAB PO PRN ×2 (03:27→12:04)
[2019-01-31] MEDS: NS 1,000 ML IV SCH ×2 (03:31→18:39)
[2019-01-31] MEDS: levETIRAcetam 250 MG TAB PO SCH ×2 (03:37→20:24)
[2019-01-31] MEDS: hydrALAZINE 20 MG/ML VIAL IVP PRN (03:47)
[2019-01-31 05:29] LABS: PLATELET COUNT 123 10^3/uL (150-400)
[2019-01-31] MEDS: INSULIN LISPRO 100 UNIT/ML SC SCH ×3 (08:35→18:42)
--- NOTE | 2019-01-31 08:46 | SOAPPROG ---
SOAP Progress Note Assessment/Plan: Assessment: 1.NSCL ca, 3B, on chemo RT 2. Encephalopathy, seems to be clearing, ? levaquin 3. Pain, probably secondary to tumor 4.Copd 5. SVC syndrome, s/p stent 6. C dif in stool 7. Seizure disorder Plan:Try low dose pain med, query switch to po vanc 01/31/19 08:41 Subjective: c/o pain chest, oriented to person/ place/ month, not day Objective: Vital Signs Temp Pulse Resp BP Pulse Ox 98.7 F 96 16 165/78 H 97 01/31/19 08:13 01/31/19 08:13 01/31/19 08:13 01/31/19 08:13 01/31/19 08:13 Laboratory Results 01/31/19 05:10 01/31/19 05:10 01/30/19 01/31/19 02/01/19 05:59 05:59 05:59 Intake Total 1400 Output Total 1020 Balance 380 Physical Exam - Physical Exam General Appearance: moderate distress Respiratory: lungs clear, decreased breath sounds Cardiac/Chest: regular rate, rhythm Abdomen: normal bowel sounds, non-tender ICD10 Worksheet Patient Problems: Problems Problem Status Onset Altered mental status Acute Hemoptysis Acute
[2019-01-31] MEDS: Fluticasone/Vilanterol [Breo Ellipta 100-25 Mcg Inh] 1 EACH IH SCH (08:51)
--- NOTE | 2019-01-31 09:41 | HOSPPROG ---
Hospitalist Progress Note Assessment/Plan: # metabolic vs toxic encephalopathy - follow closely while holding many sedating meds and treating c.dif - i believe better today but somewhat difficult to assess # C.dif - stop flagyl IV today, restart vanc PO # seizure d/o - if AMS does not resolve will consult neuro - cont keppra # hypoNa - check Ulytes; cont IVF at this point # recent dx lung cancer, stage IIIc - followed by Dr Palmer # recent SVC syndrome s/p stent at [facility] # 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 - holding xarelto at this point # chronic pain on continuous narcotics - will restart morphine SR today # chronic resp failure - cont O2 # dCHF - holding diuretics while given IVF and with c.dif # hx TIA - cont asa - unclear why on full dose asa # PUD - hold protonix with c.dif # anemia - stable # thrombocytopenia - stable Subjective: tells me she hurts; also she just had a BM and needs to be cleaned Objective: Vital Signs Temp Pulse Resp BP Pulse Ox 37.1 C 96 16 165/78 H 97 01/31/19 08:13 01/31/19 08:13 01/31/19 08:13 01/31/19 08:13 01/31/19 08:13 Laboratory Results 01/31/19 05:10 01/31/19 05:10 01/30/19 01/31/19 02/01/19 05:59 05:59 05:59 Intake Total 1400 Output Total 1020 Balance 380 chart reviewed CTH reviewed - Physical Exam Constitutional: uncomfortable, other (laying on R side moaning) Cardiovascular: regular rate and rhythym, no murmur, rub, or gallop Respiratory: no respiratory distress, no rales or rhonchi, clear to auscultation Gastrointestinal: normoactive bowel sounds, soft, non-tender abdomen, no palpable masses ICD10 Worksheet Patient Problems: Problems Problem Status Onset Hemoptysis Acute Altered mental status Acute
[2019-01-31] MEDS: morphINE SR 60 MG TAB PO SCH ×2 (10:07→20:25)
[2019-01-31] MEDS: FOLIC ACID 1 MG TAB PO SCH (10:09)
[2019-01-31] MEDS: MONTELUKAST SODIUM 10 MG TAB PO SCH (10:09)
[2019-01-31] MEDS: PRAMIPEXOLE 1 MG TAB PO SCH ×3 (10:09→21:06)
[2019-01-31] MEDS: ENOXAPARIN 40 MG/0.4 ML SYR SC SCH (10:09)
[2019-01-31] MEDS: ASPIRIN 325 MG TAB PO SCH (10:09)
[2019-01-31] MEDS: VANCOMYCIN 125 MG/2.5 ML UDL PO SCH ×3 (12:06→20:25)
--- NOTE | 2019-01-31 15:37 | ASMTCMCOM ---
CM Note CM Note Notes: Patient plan of care reviewed in am rounds. She currently lives with her daughter Mary who reports her mother had an episde of severe confusion r/t a UTI in the past . The daughter states she is POA. She is agreeable to her mother going to rehab for strengthening at discharge, Her daughter works here at [facility] and would prefer a [place] location. I will complete PASSR and send referral to [facility]. CM to follow for needs. Plan: DC to SNF rehab Date Signed: 01/31/2019 03:37 PM Electronically Signed By:Clarissa Melton RN
[2019-02-01] MEDS: VANCOMYCIN 125 MG/2.5 ML UDL PO SCH ×4 (05:22→21:17)
[2019-02-01] MEDS: NS 1,000 ML IV SCH ×2 (05:43→18:28)
[2019-02-01] MEDS: OXYCODONE/APAP 5/325 TAB PO PRN ×4 (05:44→21:44)
[2019-02-01] MEDS: ONDANSETRON DISINTEGRATING 4 MG TAB PO PRN ×2 (05:44→10:05)
[2019-02-01 05:56] LABS: PLATELET COUNT 129 10^3/uL (150-400)
[2019-02-01] MEDS: IPRATROPIUM/ALBUTEROL 3 ML DEYVIAL IH PRN (08:15)
[2019-02-01] MEDS: Fluticasone/Vilanterol [Breo Ellipta 100-25 Mcg Inh] 1 EACH IH SCH (08:18)
[2019-02-01] MEDS: INSULIN LISPRO 100 UNIT/ML SC SCH ×3 (08:29→16:51)
[2019-02-01] MEDS: morphINE SR 60 MG TAB PO SCH ×2 (08:57→21:17)
[2019-02-01] MEDS: PRAMIPEXOLE 1 MG TAB PO SCH ×3 (08:58→21:17)
[2019-02-01] MEDS: ASPIRIN 325 MG TAB PO SCH (08:58)
[2019-02-01] MEDS: MONTELUKAST SODIUM 10 MG TAB PO SCH (09:02)
[2019-02-01] MEDS: levETIRAcetam 250 MG TAB PO SCH ×2 (09:02→21:17)
[2019-02-01] MEDS: FOLIC ACID 1 MG TAB PO SCH (09:03)
[2019-02-01] MEDS: ENOXAPARIN 40 MG/0.4 ML SYR SC SCH (09:11)
--- NOTE | 2019-02-01 10:13 | SOAPPROG ---
SOAP Progress Note Assessment/Plan: Assessment: 1.NSCL ca, 3B, on chemo RT 2. Encephalopathy, much better today 3. Pain, probably secondary to tumor 4.Copd 5. SVC syndrome, s/p stent 6. C dif in stool 7. Seizure disorder Plan:Increase activity, consider resuming RT tomorrow, due for chemo 01/31/19 08:41 02/01/19 10:09 Subjective: MS much better, some substernal discomfort Objective: Vital Signs Temp Pulse Resp BP Pulse Ox 98.2 F 84 20 135/74 H 96 02/01/19 07:11 02/01/19 08:15 02/01/19 08:15 02/01/19 07:11 02/01/19 08:15 Laboratory Results 02/01/19 05:42 02/01/19 05:42 01/31/19 02/01/19 02/02/19 05:59 05:59 05:59 Intake Total 1400 1394 Output Total 1020 400 Balance 380 994 ICD10 Worksheet Patient Problems: Problems Problem Status Onset Altered mental status Acute Hemoptysis Acute
[2019-02-01] MEDS: SUCRALFATE 1 GM TAB PO SCH ×3 (11:25→21:18)
[2019-02-01] MEDS: METOCLOPRAMIDE 10 MG TAB PO SCH ×3 (11:27→21:17)
--- NOTE | 2019-02-01 12:04 | HOSPPROG ---
Hospitalist Progress Note Assessment/Plan: # metabolic vs toxic encephalopathy - much better today; recurrent issue, seems related to infections, also on levaquin here and multiple sedating meds - she has seen Dr Loja about this who does not believe that seizures are the most likely explanation - would hold as many sedating meds as possible - consider methenamine for her recurrent UTIs # C.dif - cont vanc PO # seizure d/o - cont keppra # hypoNa - better today on IVF - would stop joi as likely component of SIADH # recent dx lung cancer, stage IIIc - followed by Dr Palmer # recent SVC syndrome s/p stent at [facility] # 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 - holding xarelto at this point # chronic pain on continuous narcotics - cont morphine and oxy # chronic resp failure - cont O2 # dCHF - holding diuretics while given IVF and with c.dif # hx TIA - cont asa - unclear why on full dose asa - still appears dry # PUD - restart protonix # anemia - stable # thrombocytopenia - stable Subjective: mental status much more clear today Objective: Vital Signs Temp Pulse Resp BP Pulse Ox 36.8 C 84 20 135/74 H 96 02/01/19 07:11 02/01/19 08:15 02/01/19 08:15 02/01/19 07:11 02/01/19 08:15 Laboratory Results 02/01/19 05:42 02/01/19 05:42 01/31/19 02/01/19 02/02/19 05:59 05:59 05:59 Intake Total 1400 1394 Output Total 2783 792 2839 Balance 380 994 -[address] Milian - Physical Exam Constitutional: no apparent distress, appears nourished Cardiovascular: regular rate and rhythym, no murmur, rub, or gallop Respiratory: no respiratory distress, no rales or rhonchi, clear to auscultation Gastrointestinal: soft, non-tender abdomen, no palpable masses, No guarding, No rebound ICD10 Worksheet Patient Problems: Problems Problem Status Onset Hemoptysis Acute Altered mental status Acute
--- NOTE | 2019-02-01 15:55 | ASMTCMCOM ---
CM Note CM Note Notes: Patient plan of care reviewed in am rounds. Patient is markedly improved today. coherent and eating able to walk and very talkative. Per oncology she is to resume radiation treatments tomorrow and chemotherapy . Patient insist she will not go to SNF at this point. Family transitioning from [facility] to [facility] early February. CM available should other needs arise. PT to see tomorrow and will check recommendations at that point. Plan: Dc to home, february need [facility] Date Signed: 02/01/2019 03:53 PM Electronically Signed By:Clarissa Melton RN
[2019-02-01] MEDS: CETIRIZINE 10 MG TAB PO SCH (16:50)
[2019-02-01] MEDS: INSULIN GLARGINE 100 UNITS/ML UNIT SC SCH (21:18)
[2019-02-02] MEDS: OXYCODONE/APAP 5/325 TAB PO PRN ×3 (04:01→22:54)
[2019-02-02 04:19] LABS: PLATELET COUNT 97 10^3/uL (150-400)
[2019-02-02] MEDS: METOCLOPRAMIDE 10 MG TAB PO SCH ×4 (06:10→20:32)
[2019-02-02] MEDS: VANCOMYCIN 125 MG/2.5 ML UDL PO SCH ×4 (06:10→20:31)
[2019-02-02] MEDS: NS 1,000 ML IV SCH (07:43)
[2019-02-02] MEDS: SUCRALFATE 1 GM TAB PO SCH ×4 (07:56→20:31)
[2019-02-02] MEDS: INSULIN LISPRO 100 UNIT/ML SC SCH ×3 (08:09→17:52)
[2019-02-02] MEDS: PANTOPRAZOLE SODIUM 40 MG TAB PO SCH (08:48)
[2019-02-02] MEDS: morphINE SR 60 MG TAB PO SCH ×2 (08:48→20:31)
[2019-02-02] MEDS: MONTELUKAST SODIUM 10 MG TAB PO SCH (08:48)
[2019-02-02] MEDS: FOLIC ACID 1 MG TAB PO SCH (08:49)
[2019-02-02] MEDS: CETIRIZINE 10 MG TAB PO SCH (08:49)
[2019-02-02] MEDS: ASPIRIN 325 MG TAB PO SCH (08:49)
[2019-02-02] MEDS: levETIRAcetam 250 MG TAB PO SCH ×2 (08:49→20:32)
[2019-02-02] MEDS: PRAMIPEXOLE 1 MG TAB PO SCH ×3 (08:49→20:31)
[2019-02-02] MEDS: ENOXAPARIN 40 MG/0.4 ML SYR SC SCH (08:49)
--- NOTE | 2019-02-02 11:16 | SOAPPROG ---
SOAP Progress Note Assessment/Plan: Assessment: 1.NSCL ca, 3B, on chemo RT 2. Encephalopathy, much better today 3. Pain, probably secondary to tumor 4.Copd 5. SVC syndrome, s/p stent 6. C dif in stool 7. Seizure disorder Plan:Increase activity,RT today, possibly home tomorrow , will reschedule chemo for thursday at [facility] 01/31/19 08:41 02/01/19 10:09 02/02/19 11:15 Subjective: Feels much better, fatigued Objective: Vital Signs Temp Pulse Resp BP Pulse Ox 98.3 F 82 16 151/73 H 98 02/02/19 07:19 02/02/19 07:19 02/02/19 07:19 02/02/19 07:19 02/02/19 07:19 Laboratory Results 02/02/19 04:00 02/02/19 04:00 02/01/19 02/02/19 02/03/19 05:59 05:59 05:59 Intake Total 1394 1794 Output Total 400 1250 Balance 994 544 ICD10 Worksheet Patient Problems: Problems Problem Status Onset Altered mental status Acute Hemoptysis Acute
--- NOTE | 2019-02-02 16:05 | HOSPPROG ---
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 still on IVF Objective: Vital Signs Temp Pulse Resp BP Pulse Ox 36.8 C 92 16 158/81 H 99 02/02/19 12:00 02/02/19 12:00 02/02/19 12:00 02/02/19 12:00 02/02/19 12:00 Laboratory Results 02/02/19 04:00 02/02/19 04:00 02/01/19 02/02/19 02/03/19 05:59 05:59 05:59 Intake Total 1394 1794 240 Output Total 400 1250 300 Balance 994 544 -60 - Physical Exam Constitutional: no apparent distress Eyes: PERRL Ears, Nose, Mouth, Throat: moist mucous membranes, hearing normal Cardiovascular: regular rate and rhythym, edema (trace) Respiratory: no respiratory distress, reduced air movement Gastrointestinal: normoactive bowel sounds, soft, non-tender abdomen Skin: warm Neurologic: AAOx3 Psychiatric: interacting appropriately, not anxious, not encephalopathic Lymph, Heme, Immunologic: No petechiae ICD10 Worksheet Patient Problems: Problems Problem Status Onset Altered mental status Acute Hemoptysis Acute
[2019-02-02] MEDS: IPRATROPIUM/ALBUTEROL 3 ML DEYVIAL IH PRN (20:24)
[2019-02-02] MEDS: INSULIN GLARGINE 100 UNITS/ML UNIT SC SCH (20:31)
[2019-02-02] MEDS ORDERED: MELATONIN 3 MG TAB PO PRN (22:29)
[2019-02-03] MEDS: IPRATROPIUM/ALBUTEROL 3 ML DEYVIAL IH PRN ×3 (01:42→15:51)
[2019-02-03] MEDS: ASPIRIN 325 MG TAB PO SCH (08:50)
[2019-02-03] MEDS: SUCRALFATE 1 GM TAB PO SCH ×3 (08:50→17:30)
[2019-02-03] MEDS: OXYCODONE/APAP 5/325 TAB PO PRN ×3 (08:50→15:45)
[2019-02-03] MEDS: levETIRAcetam 250 MG TAB PO SCH (08:50)
[2019-02-03] MEDS: MONTELUKAST SODIUM 10 MG TAB PO SCH (08:51)
[2019-02-03] MEDS: CETIRIZINE 10 MG TAB PO SCH (08:51)
[2019-02-03] MEDS: PANTOPRAZOLE SODIUM 40 MG TAB PO SCH (08:51)
[2019-02-03] MEDS: morphINE SR 60 MG TAB PO SCH (08:51)
[2019-02-03] MEDS: FOLIC ACID 1 MG TAB PO SCH (08:51)
[2019-02-03] MEDS: PRAMIPEXOLE 1 MG TAB PO SCH ×2 (08:51→17:30)
[2019-02-03] MEDS: INSULIN LISPRO 100 UNIT/ML SC SCH ×2 (08:55→13:29)
[2019-02-03] MEDS: VANCOMYCIN 125 MG/2.5 ML UDL PO SCH ×2 (08:58→13:29)
[2019-02-03] MEDS: ENOXAPARIN 40 MG/0.4 ML SYR SC SCH (09:53)
[2019-02-03] MEDS: METOCLOPRAMIDE 10 MG TAB PO SCH ×3 (09:53→17:30)
--- NOTE | 2019-02-03 12:34 | SOAPPROG ---
SOAP Progress Note Assessment/Plan: Assessment: 1.NSCL ca, 3B, on chemo RT 2. Encephalopathy, much better today 3. Pain, probably secondary to tumor 4.Copd 5. SVC syndrome, s/p stent 6. C dif in stool 7. Seizure disorder Plan:Increase activity,RT today, home today , chemo scheduled for thursday at [facility] 01/31/19 08:41 02/01/19 10:09 02/02/19 11:15 02/03/19 12:33 Subjective: Feels much better Objective: Vital Signs Temp Pulse Resp BP Pulse Ox 98.7 F 103 H 18 145/69 H 96 02/03/19 09:01 02/03/19 10:29 02/03/19 10:29 02/03/19 09:01 02/03/19 10:29 Laboratory Results 02/02/19 04:00 02/03/19 11:15 02/02/19 02/03/19 02/04/19 05:59 05:59 05:59 Intake Total 1794 720 Output Total 1250 3200 Balance 544 -2480 Physical Exam - Physical Exam General Appearance: alert, no apparent distress ICD10 Worksheet Patient Problems: Problems Problem Status Onset Altered mental status Acute Hemoptysis Acute
--- NOTE | 2019-02-03 14:44 | PDDCSUM ---
Discharge Summary Discharge Summary: 68 yo female admitted with encephalopathy. now much better and back to baseline per below. DDX: # metabolic vs toxic encephalopathy - etiology unclear - she has seen Dr Loja about this who does not believe that seizures are the most likely explanation - would hold as many sedating meds as possible - consider methenamine for her recurrent UTIs. 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 Diuretics changed to q48hr # hx TIA - cont asa - unclear why on full dose asa - still appears dry # PUD - restart protonix # anemia - stable # thrombocytopenia - stable #UTI: start Bactrim DS. f/u op care. Urine culture sent Exam: NAD AAOX3 RRR CTAB S/NT/ND MEDS: SEE MED REC TOTAL TIME SPENT ON D/C IS 35 MINS
[2019-02-03] MEDS ORDERED: SULFAMETHOX/TMP 800/160 MG 1 TAB PO ONE (15:00)
--- NOTE | 2019-02-03 15:02 | ASMTCMCOM ---
CM Note CM Note Notes: Met with Pt to discussed discharge planning. Pt had refused HHC, but will now take the HH service w/ PT/OT when [place] [address] [place] [address] on next February 10. Referrals sent to [facility]. [facility] and they will provide service to her on February 10. Pt updated with service name and number. Pt has Oxygen set up at home and will have family with her 04/05. CM available for needs. Plan: Discharge home w/ [facility] starting February. Date Signed: 02/03/2019 03:02 PM Electronically Signed By:Carlie Bridges
--- NOTE | 2019-02-03 15:12 | PDIAF ---
- Diagnosis Diagnosis: encephalopathy Code Status: Full Code - Medication Management Discharge Medications: electronically signed and located in the Home Medication List. - Orders Services needed: Home Care, Certified Patient Case Coordinator, Physical Therapy, Occupational Therapy Home Care Face to Face: I certify that this patient was under my care and that I had the required [id number] encounter meeting the encounter requirements on the discharge day. My findings support the fact that the patient is homebound as defined in Home Care Face to Face Continued: CMS Chapter 7 Medicare Benefits Manual 30.1.1 , The condition of the patient is such that there exists a normal inability to leave home and consequently, leaving home would require a considerable and taxing effort. Isolation Type: CDIFF Isolation Diet Recommendation: no restrictions on diet Diet Texture: Regular Texture Diet, Thin Liquids, Meds Whole in Puree Additional Instructions: Activity: as tolerated F/U: with PCP next week - Follow Up Care Current Providers and Referrals: Patient,NotPresent [Unknown] - As per Instructions
[2019-02-03 16:17] VITALS: BP 152/88
== END 2019-02-03 19:14 | disposition home health service (06) | DRG 92 ==
LOC: EDUNIT# → INTOOBSV 10:22 → F3E 12:24 → F1N 18:45 → OBSVTOIN 01-30 15:35
PROVIDERS: ADMIT Internal Medicine; ATTEND Internal Medicine
DX: G92 Toxic encephalopathy (principal); E87.1 Hypo-osmolality and hyponatremia; C78.00 Secondary malignant neoplasm of unspecified lung; N39.0 Urinary tract infection, site not specified; J96.10 Chronic respiratory failure, unspecified whether with hypoxia or hypercapnia; I50.32 Chronic diastolic (congestive) heart failure; T38.0X5A Adverse effect of glucocorticoids and synthetic analogues, initial encounter; T36.8X5A Adverse effect of other systemic antibiotics, initial encounter; T40.605A Adverse effect of unspecified narcotics, initial encounter; E86.9 Volume depletion, unspecified; B96.89 Other specified bacterial agents as the cause of diseases classified elsewhere; G40.909 Epilepsy, unspecified, not intractable, without status epilepticus; G89.29 Other chronic pain; K27.9 Peptic ulcer, site unspecified, unspecified as acute or chronic, without hemorrhage or perforation; D69.6 Thrombocytopenia, unspecified; J44.9 Chronic obstructive pulmonary disease, unspecified; E11.9 Type 2 diabetes mellitus without complications; D64.9 Anemia, unspecified; Z95.5 Presence of coronary angioplasty implant and graft; Z86.73 Personal history of transient ischemic attack (TIA), and cerebral infarction without residual deficits; Z87.891 Personal history of nicotine dependence; Z79.01 Long term (current) use of anticoagulants; Z99.81 Dependence on supplemental oxygen
CPT/HCPCS: 82607-90; 92523-GN; 92526-GN; 92610-GN; 97116-GP; 97161-GP; 97166-GO; 97530-GO; 97535-GO; G0378; J0360; J0696; J1170; J1642; J1650; J1815; J2405; J2550; J2997

== ENCOUNTER 2019-03-09 09:48 | Inpatient (IN) | payer OTHER, BC ==
--- NOTE | 2019-03-09 10:30 | EDPHY ---
H & P Stated Complaint: Pt is lung CA Pt, SOB s CP x4-5D, mentation change yest Time Seen by Provider: 03/09/19 09:55 HPI/ROS: CHIEF COMPLAINT: Confusion HISTORY OF PRESENT ILLNESS: 60-year-old female with oxygen-dependent COPD and lung cancer presents with confusion. Onset of confusion and difficulty concentrating 2 days ago. The symptoms are gradually increasing and associated with a mild headache and increased sleeping. Increased shortness of breath over the last few days, without change in cough and without fever. She is usually on 4 L by nasal cannula. History of similar symptoms with prior urinary tract infections. No urinary symptoms. REVIEW OF SYSTEMS: complete 10 point ROS reviewed and is negative except for the noted elements in the HPI - Personal History Current Tetanus/Diphtheria Vaccine: Yes - Medical/Surgical History Hx Asthma: No Hx Chronic Respiratory Disease: Yes Hx Diabetes: Yes Hx Cardiac Disease: Yes Hx Renal Disease: Yes Hx Cirrhosis: No Hx Alcoholism: No Hx HIV/AIDS: No Hx Splenectomy or Spleen Trauma: No Other PMH: non small cell carcinoma, COPD, CHF, DM2, SHARI, sepsis, PNA - Social History Smoking Status: Former smoker Alcohol Use: Sober Drug Use: None - Physical Exam Exam: General Appearance: Alert, pleasant, speech is clear Eyes: Pupils equal and round, no conjunctival pallor or injection ENT, Mouth: Mucous membranes moist Neck: Normal inspection Respiratory: Lungs are clear to auscultation Cardiovascular: Regular rate and rhythm Gastrointestinal: Abdomen is soft and nontender Neurological: Alert, oriented x3, cranial nerves II through XII intact, motor 5 /5, sensory grossly intact, gait not assessed Skin: Warm and dry, no rash Extremities: Nontender, no pedal edema Psychiatric: Difficulty concentrating, loses her thoughts during the middle of sentences Constitutional: Initial Vital Signs Temperature (C) 36.6 C 03/09/19 09:49 Heart Rate 104 H 03/09/19 09:49 Respiratory Rate 20 03/09/19 09:49 Blood Pressure 108/69 03/09/19 09:49 O2 Sat (%) 96 03/09/19 09:49 O2 Delivery Mode Nasal Cannula O2 (L/minute) 4 Allergies/Adverse Reactions: eszopiclone [From Lunesta] Allergy (Verified 03/09/19 09:49) topiramate [From Topamax] Allergy (Verified 03/09/19 09:49) Home Medications: Medication Instructions Recorded Albuterol [Proventil Inhaler HFA 2 puffs IH Q4H PRN 12/26/18 (*)] Amitriptyline HCl 10 mg PO HS 12/26/18 Duloxetine HCl 60 mg PO DAILY 12/26/18 Gabapentin [Gabapentin 800 mg] 800 mg PO TID 12/26/18 Herbals/Supplements -Info Only 1 ea PO DAILY 12/26/18 Insulin Degludec [Tresiba 16 units SC HS 12/26/18 Flextouch U-100] Ipratropium/Albuterol [Duoneb (*)] 3 ml IH Q4H PRN 12/26/18 Levocetirizine Dihydrochloride 5 mg PO DAILY 12/26/18 [24Hr Allergy Relief] Metoclopramide [Reglan 10 mg tab 15 mg PO QID 12/26/18 (*)] Montelukast Sodium [Singulair 10 10 mg PO DAILY 12/26/18 mg (*)] Morphine Sulfate [Morphine Sulfate 60 mg PO BID 12/26/18 ER] Ondansetron HCl 4 mg PO Q6H PRN 12/26/18 Pantoprazole Sodium [Protonix 40mg 40 mg PO BID 12/26/18 (*)] Pramipexole Di-HCl [Mirapex 1 mg 1 mg PO TID 12/26/18 (*)] Simvastatin 40 mg PO DAILY 12/26/18 Sucralfate 1 gm PO QID 12/26/18 levETIRAcetam [Keppra 250 mg (*)] 250 mg PO BID 12/26/18 glipiZIDE [Glipizide] 5 mg PO BIDMEAL 12/27/18 Aspirin [Aspirin 325 mg (*)] 325 mg PO DAILY 12/30/18 Fluticasone/Vilanterol [Breo 1 each IH DAILY 01/04/19 Ellipta 100-25 Mcg INH] Dexamethasone [Decadron 4 MG (*)] 4 mg PO BIDMEAL 01/29/19 Diphenoxylate HCl/Atrop Sulf 1 tab PO QID PRN 01/29/19 [Lomotil Tab (*)] Fluticasone Nasal [Flonase Nasal 2 sprays NASAL DAILY 01/29/19 [place]] Folic Acid [Folic Acid 1 MG (*)] 1 mg PO DAILY 01/29/19 Insulin Aspart [novoLOG] 0 - 4 unit SC AD 01/29/19 Bumetanide [Bumex (*)] 1 mg PO Q48H #30 tab 02/03/19 Sulfamethox/Tmp 800/160 mg 1 tab PO BID #12 tab 02/03/19 [Bactrim Ds] metroNIDAZOLE [Flagyl 500 mg (*)] 500 mg PO TID #30 tab 02/03/19 oxyCODONE/APAP 5/325 [Percocet 1 - 2 tab PO Q4HRS PRN #20 tab 02/03/19 5/325 (*)] Medical Decision Making - Diagnostics EKG Interpretation: EKG interpreted by me reveals normal sinus rhythm, rate 93, low voltage, poor R- wave progression. Interpretation: Abnormal EKG Imaging Results: Imaging Impressions Chest X-Ray 03/09/19 09:56 Impression: 1. Stable position of central vascular catheter with tip in SVC stent. 2. No increase in mediastinal or hilar lymphadenopathy. 3. Persistent mild elevation right hemidiaphragm with adjacent compressive atelectatic change. Head CT 03/09/19 10:27 Impression: Age-appropriate generalized cerebral volume loss with sequela of chronic microvascular ischemic disease. No acute intracranial process. Findings and recommendations discussed with DELLA YANEZ at 1047 hour, 2018. Imaging: Discussed imaging studies w/ business travel consultant Radiologist, I viewed and interpreted images myself ED Course/Re-evaluation: This pt presents with confusion. Exam is nonfocal, without localizing findings. stat EKG reveals no evidence of ischemia or dysrhythmia. CXR negative. UA c/w possible UTI, cx's sent and Rocephin IV given. Meets SIRS criteria, lactate normal. Elevated D-dimer noted. In review of her past medical record, she had an elevated D-dimer in December [address] pulmonary angiogram that revealed no evidence of pulmonary embolism. I will not repeat CT pulmonary angiogram today as the elevated D-dimer is most likely secondary to underlying lung cancer. The hospitalist service was consulted for admission for UTI and confusion. Differential Diagnosis: Altered mental status including but not limited to hypoglycemia, infectious process, electrolyte abnormality, head injury, CVA, and intoxicants. - Data Points Laboratory Results: Laboratory Results 03/09/19 10:28 03/09/19 10:28 03/09/19 03/09/19 03/09/19 11:10 10:28 10:28 WBC RBC Hgb Hct MCV MCH MCHC RDW Plt Count MPV Neut % (Auto) Lymph % (Auto) Ce[place] % (Auto) Eos % (Auto) Baso % (Auto) Nucleat RBC Rel Count Absolute Neuts (auto) Absolute Lymphs (auto) Absolute Monos (auto) Absolute Eos (auto) Absolute Basos (auto) Absolute Nucleated RBC Immature Gran % Immature Gran # D-Dimer 1.48 ug/mLFEU H ug/mLFEU (0.00-0.50) Sodium 135 mEq/L mEq/L (135-145) Potassium 4.8 mEq/L mEq/L (3.5-5.2) Chloride 101 mEq/L mEq/L (97-110) Carbon Dioxide 24 mEq/l mEq/l (22-31) Anion Gap 10 mEq/L mEq/L (6-14) BUN 7 mg/dL mg/dL (7-23) Creatinine 0.6 mg/dL mg/dL (0.6-1.0) Estimated GFR > 60 Glucose 125 mg/dL H mg/dL (70-100) Calcium 8.7 mg/dL mg/dL (8.5-10.4) NT-Pro-B Natriuret Pep 103 pg/mL pg/mL (0-125) Urine Color YELLOW Urine Appearance HAZY Urine pH 7.0 (5.0-7.5) Ur Specific [place] 1.012 (1.002-1.030) Urine Protein NEGATIVE (NEGATIVE) Urine Ketones 1+ H (NEGATIVE) Urine Blood NEGATIVE (NEGATIVE) Urine Nitrate POSITIVE H (NEGATIVE) Urine Bilirubin NEGATIVE (NEGATIVE) Urine Urobilinogen NEGATIVE EU EU (0.2-1.0) Ur Leukocyte Esterase NEGATIVE (NEGATIVE) Urine RBC 1-3 /hpf /hpf (0-3) Urine WBC 3-5 /hpf H /hpf (0-3) Ur Epithelial Cells NONE SEEN /lpf /lpf (NONE-1+) Urine Bacteria 1+ /hpf H /hpf (NONE SEEN) Urine Glucose NEGATIVE (NEGATIVE) 03/09/19 10:28 WBC REJ RBC REJ Hgb REJ Hct REJ MCV REJ MCH REJ MCHC REJ RDW REJ Plt Count REJ MPV REJ Neut % (Auto) REJ Lymph % (Auto) REJ Ceiba % (Auto) REJ Eos % (Auto) REJ Baso % (Auto) REJ Nucleat RBC Rel Count REJ Absolute Neuts (auto) REJ Absolute Lymphs (auto) REJ Absolute Monos (auto) REJ Absolute Eos (auto) REJ Absolute Basos (auto) REJ Absolute Nucleated RBC REJ Immature Gran % REJ Immature Gran # REJ D-Dimer Sodium Potassium Chloride Carbon Dioxide Anion Gap BUN Creatinine Estimated GFR Glucose Calcium NT-Pro-B Natriuret Pep Urine Color Urine Appearance Urine pH Ur Specific [place] Urine Protein Urine Ketones Urine Blood Urine Nitrate Urine Bilirubin Urine Urobilinogen Ur Leukocyte Esterase Urine RBC Urine WBC Ur Epithelial Cells Urine Bacteria Urine Glucose Medications Given: Discontinued Medications Albuterol/Ipratropium (Duoneb) 3 ml IH EDNOW ONE Stop: 03/09/19 10:40 Last Admin: 03/09/19 10:42 Dose: 3 ml Ceftriaxone Sodium/Dextrose (Rocephin 1 Gm (Premix)) 50 mls @ 100 mls/hr IV EDNOW ONE PRN Reason: Protocol Stop: 03/09/19 11:53 Last Admin: 03/09/19 11:42 Dose: 50 mls Departure - [facility] Clinical Impression: Acute encephalopathy Urinary tract infection Qualifiers: Urinary tract infection type: acute cystitis Hematuria presence: without hematuria Qualified Code(s): N30.00 - Acute cystitis without hematuria Condition: Fair
[2019-03-09] MEDS ORDERED: IPRATROPIUM/ALBUTEROL 3 ML DEYVIAL IH ONE (10:39)
[2019-03-09 12:37] LABS: PLATELET COUNT 111 10^3/uL (150-400)
--- NOTE | 2019-03-09 12:42 | CPEKG ---
Test Reason : OPEN Blood Pressure : / mmHG Vent. Rate : 093 BPM Atrial Rate : 093 BPM P-R Int : 180 ms QRS Dur : 104 ms QT Int : 377 ms P-R-T Axes : 060 -57 061 degrees QTc Int : 469 ms Sinus rhythm Probable left atrial enlargement Left anterior fascicular block Low voltage, precordial leads Probable anteroseptal infarct, old Confirmed by Ai Luo ([id number]) on 03/09/2019 12:42:36 PM Referred By: Ai Luo Confirmed By:Ai Luo
[2019-03-09] MEDS ORDERED: D50W 25 GM/50 ML SYR IVP PRN (13:12)
--- NOTE | 2019-03-09 13:23 | PDGENHP ---
History and Physical - Chief Complaint Altered mental status - History of Present Illness 68 y/o female recently diagnosed w/stage IIIc non-small cell lung cancer presents w/confusion and increased SOB within the last 4-5 days. This is my first encounter w/the pt, first time reviewing her PMH. She was evaluated in the ED room reporting her granddaughter had dropped her off. She was A&Ox1, only knows self but alert. She is a poor historian but reports her family told her she was forgetting things starting yesterday afternoon. She reports her increased SOB has resolved. Denies dysuria but unable to tell me if she is experiencing loose stools. Denies fevers, CP. Per ED Dr. Luo note: The last few days, she has been confused and difficulty concentrating w/associated mild RAPHAEL and increased sleeping and SOB w/o change in cough. Pt is chronically on 4L NC. The pt has been admitted twice since December 2018, first admission d/t SOB and hemoptysis and second admission w/confusion and possible UTI. Imaging performed thus far including her recent two admissions: CXR, Chest CTA, Head CT , Brain MRI. History Information - Allergies/Home Medication List Allergies/Adverse Reactions: eszopiclone [From Lunesta] Allergy (Verified 03/09/19 14:12) Other-Enter Comments topiramate [From Topamax] Allergy (Verified 03/09/19 14:12) Other-Enter Comments Home Medications: Albuterol [Proventil Inhaler HFA (*)] 2 puffs IH Q4H PRN 12/26/18 [Last Taken ] Amitriptyline HCl 10 mg PO HS 12/26/18 [Last Taken 03/08/19] Duloxetine HCl 60 mg PO DAILY 12/26/18 [Last Taken 03/08/19] Insulin Degludec [Tresiba Flextouch U-100] 16 units SC HS 12/26/18 [Last Taken 03/08/19] Ipratropium/Albuterol [Duoneb (*)] 3 ml IH Q4H PRN 12/26/18 [Last Taken 03/08/19 ] Levocetirizine Dihydrochloride [24Hr Allergy Relief] 5 mg PO DAILY 12/26/18 [ Last Taken 03/08/19] Metoclopramide [Reglan 10 mg tab (*)] 15 mg PO QID 12/26/18 [Last Taken 03/08/19 ] Montelukast Sodium [Singulair 10 mg (*)] 10 mg PO DAILY 12/26/18 [Last Taken ] Pantoprazole Sodium [Protonix 40mg (*)] 40 mg PO BID 12/26/18 [Last Taken ] Pramipexole Di-HCl [Mirapex 1 mg (*)] 1 mg PO TID 12/26/18 [Last Taken 03/08/19] Simvastatin 40 mg PO DAILY 12/26/18 [Last Taken 03/08/19] levETIRAcetam [Keppra 250 mg (*)] 250 mg PO BID 12/26/18 [Last Taken 03/08/19] glipiZIDE [Glipizide] 5 mg PO BIDMEAL 12/27/18 [Last Taken 03/08/19] Diphenoxylate HCl/Atrop Sulf [Lomotil Tab (*)] 1 tab PO QID PRN 01/29/19 [Last Taken 03/08/19] Folic Acid [Folic Acid 1 MG (*)] 1 mg PO DAILY 01/29/19 [Last Taken 03/08/19] Insulin Aspart [novoLOG] 0 - 4 unit SC AD 01/29/19 [Last Taken 03/08/19] Bumetanide [Bumex (*)] 2 mg PO DAILY 03/09/19 [Last Taken 03/08/19] morphINE SR [MS Contin/Oramorph SR 30 mg (*)] 30 mg PO BID 03/09/19 [Last Taken 03/08/19] I have personally reviewed and updated: family history, medical history, social history, surgical history - Past Medical History Additional medical history: Heart failure, seizure disorder, recently diagnosed stage IIIC lung cancer, COPD on 4 L chronically, insulin-dependent diabetes, peptic ulcer disease reported history of TIA - Surgical History Reports: no pertinent surgical hx - Family History Positive for: non-pertinent - Social History Smoking Status: Former smoker Alcohol Use: Sober Drug Use: None Review of Systems Review of Systems: ROS: 10pt was reviewed & negative except for what was stated in HPI & below Physical Exam Physical Exam: Lab data and imaging were reviewed. Case discussed w/admitting physician, Dr. Raymon Payne. WBC: 3.01 H/H: 9.5/30.6 Plt count: 111 Na: 135 K: 4.8 Cl: 101 Co2: 24 BUN/Cr: 7/0.6 D-Dimer: 1.48 BNP: 103 UA: Ketones 1+, +Nitrate, WBC3-5H, Bacteria 1+ Lactic acid: 0.7 CXR: Stable position of central vascular catheter w/tip in SVC stent; no increase in mediastinal or hilar lymphadenopathy, persistent mild elevation right hemidiaphragm w/adjacent compressive atelectatic changes. EKG: Tachycardic, left axis deviation Head CT: Age-appropriate generalized cerebral volume loss w/sequela of chronic microvascular ischemic disease. No acute intracranial process. Temp Pulse Resp BP Pulse Ox 36.7 C 84 18 132/76 H 98 03/09/19 13:00 03/09/19 13:00 03/09/19 13:00 03/09/19 13:00 03/09/19 13:00 O2 (L/minute) 4 Constitutional: appears nourished, uncomfortable Eyes: PERRL, anicteric sclera, EOMI Ears, Nose, Mouth, Throat: hearing normal, ears appear normal, no oral mucosal ulcers, dry mucous membranes Cardiovascular: regular rate and rhythym, no murmur, rub, or gallop, No edema Peripheral Pulses: 2+: dorsalis-pedis (R), dorsalis-pedis (L) Respiratory: expiratory wheeze Gastrointestinal: normoactive bowel sounds, soft, non-tender abdomen, no palpable masses Genitourinary: no bladder fullness, no bladder tenderness Skin: warm, normal color, no rashes or abrasions, no fluctuance, no induration, No mottled Musculoskeletal: full muscle strength, no muscle tenderness, normal joint ROM, no joint effusions Neurologic: sensation intact bilaterally, other (A&Ox1) Psychiatric: encephalopathic, anxious Lymph, Heme, Immunologic: no cervical LAD, no supraclavicular LAD Lab Data & Imaging Review 03/09/19 12:18 03/09/19 10:28 WBC 3.01 10^3/uL (3.80-9.50) L 03/09/19 12:18 RBC 3.20 10^6/uL (4.18-5.33) L 03/09/19 12:18 Hgb 9.5 g/dL (12.6-16.3) L 03/09/19 12:18 Hct 30.6 % (38.0-47.0) L 03/09/19 12:18 MCV 95.6 fL (81.5-99.8) 03/09/19 12:18 MCH 29.7 pg (27.9-34.1) 03/09/19 12:18 MCHC 31.0 g/dL (32.4-36.7) L 03/09/19 12:18 RDW 22.4 % (11.5-15.2) H 03/09/19 12:18 Plt Count 111 10^3/uL (150-400) L 03/09/19 12:18 MPV 8.5 fL (8.7-11.7) L 03/09/19 12:18 Neut % (Auto) Not Reported 03/09/19 12:18 Lymph % (Auto) Not Reported 03/09/19 12:18 [place] % (Auto) Not Reported 03/09/19 12:18 Eos % (Auto) Not Reported 03/09/19 12:18 Baso % (Auto) Not Reported 03/09/19 12:18 Nucleat RBC Rel Count Not Reported 03/09/19 12:18 Absolute Neuts (auto) Not Reported 03/09/19 12:18 Absolute Lymphs (auto) Not Reported 03/09/19 12:18 Absolute Monos (auto) Not Reported 03/09/19 12:18 Absolute Eos (auto) Not Reported 03/09/19 12:18 Absolute Basos (auto) Not Reported 03/09/19 12:18 Absolute Nucleated RBC Not Reported 03/09/19 12:18 Immature Gran % Not Reported 03/09/19 12:18 Seg Neutrophils % 73.0 % 03/09/19 12:18 Band Neutrophils % 12.0 % 03/09/19 12:18 Lymphocytes % 10.0 % 03/09/19 12:18 Monocytes % 4.0 % 03/09/19 12:18 Eosinophils % 0.0 % 03/09/19 12:18 Basophils % 0.0 % 03/09/19 12:18 Metamyelocytes % 1.0 % 03/09/19 12:18 Myelocytes % 0.0 % 03/09/19 12:18 Promyelocytes % 0.0 % 03/09/19 12:18 Blast Cells % 0.0 % 03/09/19 12:18 Immature Gran # Not Reported 03/09/19 12:18 Absolute Seg Neuts 2.20 10^3/uL (1.70-6.50) 03/09/19 12:18 Absolute Band Neuts 0.36 10^3/uL (0.00-0.70) 03/09/19 12:18 Absolute Lymphocytes 0.30 10^3/uL (1.00-3.00) L 03/09/19 12:18 Absolute Monocytes 0.12 10^3/uL (0.30-0.80) L 03/09/19 12:18 Absolute Eosinophils 0.00 10^3/uL (0.03-0.40) L 03/09/19 12:18 Absolute Basophils 0.00 10^3/uL (0.02-0.10) L 03/09/19 12:18 Absolute Metamyelocyte 0.03 10^3/mL (0.00-0.00) H 03/09/19 12:18 Absolute Myelocytes 0.00 10^3/mL (0.00-0.00) 03/09/19 12:18 Absolute Promyelocytes 0.00 10^3/uL (0.00-0.00) 03/09/19 12:18 Absolute Plasma Cells 0.00 10^3/uL (0.00-0.00) 03/09/19 12:18 Nucleated RBCs 0 /100 WBC (0-0) 03/09/19 12:18 Absolute Blast Cells 0.00 10^3/uL (0.00-0.00) 03/09/19 12:18 Plasma Cells % 0.0 % 03/09/19 12:18 Platelet Estimate DECREASED (ADEQ) L 03/09/19 12:18 Polychromasia 1+ H 03/09/19 12:18 Microcytic Cells 1+ H 03/09/19 12:18 Oval Macrocytes 1+ H 03/09/19 12:18 Elliptocytes 1+ H 03/09/19 12:18 D-Dimer 1.48 ug/mLFEU (0.00-0.50) H 03/09/19 10:28 VBG Lactic Acid 0.7 mmol/L (0.7-2.1) 03/09/19 12:18 Sodium 135 mEq/L (135-145) 03/09/19 10:28 Potassium 4.8 mEq/L (3.5-5.2) 03/09/19 10:28 Chloride 101 mEq/L (97-110) 03/09/19 10:28 Carbon Dioxide 24 mEq/l (22-31) 03/09/19 10:28 Anion Gap 10 mEq/L (6-14) 03/09/19 10:28 BUN 7 mg/dL (7-23) 03/09/19 10:28 Creatinine 0.6 mg/dL (0.6-1.0) 03/09/19 10:28 Estimated GFR > 60 03/09/19 10:28 Glucose 125 mg/dL (70-100) H 03/09/19 10:28 Calcium 8.7 mg/dL (8.5-10.4) 03/09/19 10:28 NT-Pro-B Natriuret Pep 103 pg/mL (0-125) 03/09/19 10:28 Urine Color YELLOW 03/09/19 11:10 Urine Appearance HAZY 03/09/19 11:10 Urine pH 7.0 (5.0-7.5) 03/09/19 11:10 Ur Specific [place] 1.012 (1.002-1.030) 03/09/19 11:10 Urine Protein NEGATIVE (NEGATIVE) 03/09/19 11:10 Urine Ketones 1+ (NEGATIVE) H 03/09/19 11:10 Urine Blood NEGATIVE (NEGATIVE) 03/09/19 11:10 Urine Nitrate POSITIVE (NEGATIVE) H 03/09/19 11:10 Urine Bilirubin NEGATIVE (NEGATIVE) 03/09/19 11:10 Urine Urobilinogen NEGATIVE EU (0.2-1.0) 03/09/19 11:10 Ur Leukocyte Esterase NEGATIVE (NEGATIVE) 03/09/19 11:10 Urine RBC 1-3 /hpf (0-3) 03/09/19 11:10 Urine WBC 3-5 /hpf (0-3) H 03/09/19 11:10 Ur Epithelial Cells NONE SEEN /lpf (NONE-1+) 03/09/19 11:10 Urine Bacteria 1+ /hpf (NONE SEEN) H 03/09/19 11:10 Urine Glucose NEGATIVE (NEGATIVE) 03/09/19 11:10 Assessment & Plan Assessment: 68 y/o female w/recently diagnosed stage IIIc lung cancer presenting w/a few days of confusion, forgetting her thought mid-sentence and supposedly increased SOB. Vital signs are the following: BP 150/72, HR 89, Resp 22, Temp 36.7c, 97% 4L NC. #Altered mental status -Unclear etiology for the time being however polypharmacy is a possibility. She takes Elavil, Cymbalta, Reglan, MS Contin, Percocet and Mirapex which could all contribute to her confusion. Brain MRI performed 01/2019 demonstrates no evidence of metastatic disease and head CT today reveal no hemorrhage or acute intracranial process. Infection is another possibility w/AMS however she has been afebrile, no high white count, lactic acid normal, UA results and asymptomatic does not lean towards UTI. Infarction could cause AMS. Chest CTA performed in December 2018 w/elevated d-dimer w/o PE, she has an elevated d-dimer now but will not repeat chest CTA d/t results in December and the unlikelihood of PE. EKG tachy, w/left axis deviation. -Received ceftriaxone and duoneb treatment in ED; will hold off on any further abx for now, cont duoneb tx -Blood cx pending -Cycle trops -A1c in AM -Brain MRI/LP to evaluate possible leptomeningeal spread #Increased SOB/COPD -Chronically wears 4L NC and saturating 97% -Cont duoneb tx -Cont home inhalers -IS #SVC syndrome -Started on Xarelto and ASA then admitted for hemoptysis and these were held -S/p stent placement under SVC at [facility] 12/2018 -Uncertain whether Xarelto has resumed since then #Anemia -Appears stable. No evidence bleeding. -Cont to monitor #Stage IIIc Carcinoma of the lung -Followed by Dr. Palmer -Unclear last chemo tx, per records in 01/2019 - undergoing chemo -Oncology has been consulted. Spoke to Dr. Vargas who confirmed onc team will consult pt while in house. Diet: Carb-controlled Code: Full VTE ppx: SCDs Dispo: Admit to obs
--- NOTE | 2019-03-09 13:45 | ASMTLACE ---
MELISSAE Acuity / Level of Answers: Yes Care: Did the patient have an inpatient admission? Comorbidities - select Answers: Any tumor (including all that apply lymphoma or leukemia) Chronic pulmonary disease Congestive heart failure Diabetes (uncontrolled or controlled) Mild liver or renal disease Opioid dependence / Chronic pain # of Emergency department Answers: 3-4 visits in the last 6 months Score: 19 Date Signed: 03/09/2019 01:44 PM Electronically Signed By:Barbara Connors
[2019-03-09] MEDS ORDERED: ALBUTEROL 60 PUFFS/8 GM MDI IH PRN (14:25)
[2019-03-09] MEDS ORDERED: ENOXAPARIN 40 MG/0.4 ML SYR SC SCH (14:45)
--- NOTE | 2019-03-09 15:27 | HOSPPROG ---
Hospitalist Progress Note Assessment/Plan: patient seen/examined/discussed w RAMIREZ De La Fuente. Events noted, labs reviewed. 68 yo F w recent dx of lung ca w apparent good response to treatment p/w encephalopathy w/out apparent cause. minimal pyuria and no sx. last presentation for uti w sig pyuria and sx 1. exam s/o aphasia as much as confusion 2. not overmedicated 3. mri w/wo of brain plus LP to eval for leptomeningeal spread d/w dr longoria Objective: Vital Signs Temp Pulse Resp BP Pulse Ox 36.6 C 88 18 120/58 L 99 03/09/19 13:35 03/09/19 13:35 03/09/19 13:35 03/09/19 13:35 03/09/19 13:35 Laboratory Results 03/09/19 12:18 ICD10 Worksheet Patient Problems: Problems Problem Status Onset Acute encephalopathy Acute Urinary tract infection Acute Altered mental status Acute Hemoptysis Acute
[2019-03-09] MEDS ORDERED: LORazepam 2 MG/ML INJ IVP ONE (15:40)
[2019-03-09] MEDS: OXYCODONE/APAP 5/325 TAB PO PRN ×2 (15:48→23:51)
[2019-03-09] MEDS: METOCLOPRAMIDE 10 MG TAB PO SCH (15:49)
[2019-03-09] MEDS: guaiFENesin 600 MG TAB.ER PO SCH (15:50)
[2019-03-09] MEDS ORDERED: PRAMIPEXOLE 1 MG TAB PO SCH (16:00)
[2019-03-09] MEDS ORDERED: LORazepam 0.5 MG TAB PO ONE (16:06)
[2019-03-09] MEDS: IPRATROPIUM/ALBUTEROL 3 ML DEYVIAL IH PRN (16:06)
[2019-03-09] MEDS: INSULIN REGULAR HUMAN 100 UNIT/ML UNIT SC SCH ×2 (17:55→23:49)
[2019-03-09] MEDS ORDERED: GADOBUTROL 10 ML VIAL IVP ONE (18:18)
--- NOTE | 2019-03-09 18:44 | GCON ---
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 RECOMMENDATIONS: 1. I would recommend the patient repeat MRI of her brain to look for leptomeningeal carcinomatosis. 2. I would recommend a lumbar puncture to again look for evidence of leptomeningeal spread and look for evidence of leptomeningeal carcinomatosis also. 3. Further workup will be dependent on the initial evaluation as outlined above. 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 This was apparently fairly sudden onset. In addition to having the above-mentioned symptoms, the patient has had some photophobia and back pain. Her head CT in the emergency room showed no obvious metastatic lesions. When the patient was initially diagnosed, she presented with superior vena cava syndrome. This was h er initial presentation with her locally advanced squamous cell carcinoma. Her vena cava was narrowe d. There are also rashad metastases in the subcarinal space. She had a stent placed and was given ra diation therapy. Subsequently, she had systemic chemotherapy with paclitaxel and carboplatin. Durva lumab was planned, but has not yet started. PAST MEDICAL HISTORY: Remarkable for COPD requiring oxygen. She also has a history of congestive he art failure, cirrhosis and portal hypertension, which was noted on CT imaging. FAMILY HISTORY: Unremarkable for malignancy or hematologic disorders in first-degree relatives. SOCIAL HISTORY: The patient smoked for 49 years, quitting in June of 2018. She lives with her daughter, Mary. REVIEW OF SYSTEMS: Not reliably obtainable at this time, but she does seem to have photophobia and d ifficulty with expressive aphasia. She denies any nausea or vomiting. She is constipated and she se ems to have a generalized hypersensitivity. PHYSICAL EXAMINATION: GENERAL: Reveals a woman who is conversant, but has a difficult time getting complete sentences out at times. She has superior orbital edema. Oral examination shows no ulcerati ons or exudates. LUNGS: A few scattered rhonchi anteriorly and posteriorly. ABDOMEN: Abdominal ex am shows an obese abdomen, active bowel sounds. CARDIAC: Exam shows a regular rhythm. MUSCULOSKELE JESSY: She does not appear to have Brudzinski sign. LABORATORY EXAM: On admission showed a white count of 3.01 with a hemoglobin of 9.5 and a platelet c ount of 111,000. Her D-dimer was slightly elevated at 1.48. Chemistry showed normal calcium at 8.7 and normal creatinine at 0.6. Thank you very much for allowing us to continue to participate with this woman's oncologic care darlene briggs this hospitalization and beyond. /[id number]/MODL
[2019-03-09] MEDS: levETIRAcetam 250 MG TAB PO SCH (20:42)
[2019-03-09] MEDS: AMITRIPTYLINE HCL 10 MG TAB PO SCH (20:43)
[2019-03-09] MEDS: morphINE SR 30 MG TAB PO SCH (20:44)
[2019-03-09] MEDS: PRAMIPEXOLE 1 MG TAB PO SCH (20:45)
[2019-03-09] MEDS ORDERED: guaiFENesin 600 MG TAB.ER PO SCH (21:00)
--- NOTE | 2019-03-09 21:57 | HOSPPROG ---
Hospitalist Progress Note Assessment/Plan: RN contacted me requesting evaluation of pt's right calf which was noted to be red, warm swollen and painful. I evaluated the pt, she is a poor historian and does have altered mental status. The pt was positioned in such a way in her bed that made her right calf appear to be swollen. I asked the pt to reposition herself and her calves were symmetrical, no evidence of swelling. Also, no tautness to either calves. 2+ pedal pulses, no skin discoloration. Warm to the touch but warm all over so this isn't abnormal. Pt reports pain w/any pressure applied including her calves, thighs, arms, etc and she reports "I have pain everywhere." My evaluation does not warrant US to calves, vital signs stable. Objective: Vital Signs Temp Pulse Resp BP Pulse Ox 36.8 C 86 18 137/67 H 97 03/09/19 19:03 03/09/19 19:03 03/09/19 19:03 03/09/19 19:03 03/09/19 19:03 Laboratory Results 03/09/19 12:18 03/08/19 03/09/19 03/10/19 05:59 05:59 05:59 Intake Total 100 Balance 100 ICD10 Worksheet Patient Problems: Problems Problem Status Onset Acute encephalopathy Acute Urinary tract infection Acute Altered mental status Acute Hemoptysis Acute
[2019-03-09] MEDS ORDERED: HEPARIN 5,000 UNIT/0.5 ML INJ SC SCH (22:00)
[2019-03-10] MEDS: INSULIN DEGLUDEC 16 UNIT SC SCH ×2 (00:04→22:06)
[2019-03-10] MEDS: PRAMIPEXOLE 1 MG TAB PO SCH ×2 (00:05→08:48)
[2019-03-10] MEDS: PANTOPRAZOLE SODIUM 40 MG TAB PO SCH ×3 (00:05→23:13)
[2019-03-10] MEDS: METOCLOPRAMIDE 10 MG TAB PO SCH ×2 (00:05→06:45)
[2019-03-10] MEDS ORDERED: ALTEPLASE 2 MG VIAL IVP ONE (03:54)
[2019-03-10] MEDS: OXYCODONE/APAP 5/325 TAB PO PRN (04:47)
[2019-03-10 05:46] LABS: PLATELET COUNT 107 10^3/uL (150-400)
[2019-03-10] MEDS: MONTELUKAST SODIUM 10 MG TAB PO SCH (08:48)
[2019-03-10] MEDS: ATORVASTATIN CALCIUM 20 MG TAB PO SCH (08:49)
[2019-03-10] MEDS: DULoxetine 60 MG CAP PO SCH (08:49)
[2019-03-10] MEDS: morphINE SR 30 MG TAB PO SCH (08:49)
[2019-03-10] MEDS: FOLIC ACID 1 MG TAB PO SCH (08:49)
[2019-03-10] MEDS: levETIRAcetam 250 MG TAB PO SCH (08:49)
[2019-03-10] MEDS: guaiFENesin 600 MG TAB.ER PO SCH ×2 (08:50→23:12)
[2019-03-10] MEDS: INSULIN REGULAR HUMAN 100 UNIT/ML UNIT SC SCH ×4 (08:52→22:00)
[2019-03-10] MEDS ORDERED: BUMETANIDE 2 MG TAB PO SCH (09:00)
--- NOTE | 2019-03-10 09:26 | HOSPPROG ---
Hospitalist Progress Note Assessment/Plan: 68 yo F w lung cancer, SVC syndrome here w encephalopathy, expressive aphasia. aphasia: mri brain w no stroke, no temporal lobe mass LP today to eval for carcinomatous meningitis encephalopathy: presumed toxic metabolic ut no apparent cause identified electrolytes, blood sugar. hct, lft's, trop all OK not hypo- or hypertensive MRI brain as above med list contains a few potential culprits although she has been on all of them hold opiates, mirapaex and reglan hold bumex as looks a bit dry ABG now EEG ordered neurology to see lung cancer: appears to have had excellent clinical response LP as above proph: lmwh after LP dispo: inpt Subjective: case d/w dr henriquez. remains encephalopathic this AM Objective: Vital Signs Temp Pulse Resp BP Pulse Ox 36.6 C 96 19 129/72 H 96 03/10/19 03:35 03/10/19 08:00 03/10/19 03:35 03/10/19 03:35 03/10/19 08:00 Laboratory Results 03/10/19 05:40 03/10/19 05:40 03/09/19 03/10/19 03/11/19 05:59 05:59 05:59 Intake Total 340 Output Total 400 Balance -60 - Physical Exam Constitutional: no apparent distress Eyes: PERRL, anicteric sclera Ears, Nose, Mouth, Throat: hearing normal, No moist mucous membranes Cardiovascular: regular rate and rhythym, no murmur, rub, or gallop Respiratory: no respiratory distress, no rales or rhonchi Gastrointestinal: normoactive bowel sounds, soft, non-tender abdomen, No guarding, No rebound Genitourinary: No owens in urethra Skin: warm, normal color Musculoskeletal: full muscle strength Neurologic: sensation intact bilaterally, No AAOx3 Psychiatric: No interacting appropriately ICD10 Worksheet Patient Problems: Problems Problem Status Onset Acute encephalopathy Acute Urinary tract infection Acute Altered mental status Acute Hemoptysis Acute
[2019-03-10 11:35] LABS: INR 1.05 (0.83-1.16); PROTIME(PATIENT) 13.3 SEC (12.0-15.0)
--- NOTE | 2019-03-10 12:40 | NEUROPROG ---
Assessment: [id number] - Neurology Consult: - CC: Altered mental status, cancer - HPI: 03/10/19: Pt with recent diagnosis of stage IIIc non-small cell lung cancer presents w/confusion and increased SOB for 4-5 days prior do admission on . Pt was admitted for confusion in December 2018 felt to be secondary to a UTI. Patient has been undergoing chemotherapy. Dr. Vargas (oncology) saw the pt on 03/09/19 and recommend brain MRI wwo and spinal tap for further evaluation. Brain MRI wwo showed no cancer or any other acute issues to explain her symptoms. It did show an old stable small microbleed in the brainstem that does not seem likely to be causing her current symptoms. I do not think this finding requires any additional evaluation at this time. Pt also has a prior reported seizure disorder. Neurologic exam on 03/10/19 showed pt to be confused without any focal deficits. I was not sure what was causing the patients confusion but I agree with plan to obtain spinal tap. I will also get an EEG to assess for subclinical seizures. Pt is on multiple medications (narcotics, Elavil) and has multiple medical issues (cancer, heart failure, DM on insulin) which can predispose to confusion. Pt also has UA with nitrites and growth on urine culture so a UTI could predispose to confusion. - PMHx: heart failure, seizure disorder, recently diagnosed stage IIIC lung cacner , COPD, DM on insulin, peptic ulcer disease, TIA - SHx: former tobacco use FHx: no cancer - ROS: Pt denied acute fever, total vision loss, active severe chest pain, respiratory failure, total body severe rash, total bowel/bladder incontinence, psychosis, active seizures, or active bleeding - O: VS reviewed General: somnolent Eyes: Fundoscopic exam not able to visualize optic disks CV: Heart RRR, no murmur, no carotid bruit Lungs: Clear to auscultation bilaterally, no rhonchi or rales Neuro: - Mental: . Oriented x person . concentration appears reduced . speech fluency/comprehension difficult to test due to confusion . memory appears reduced . fund of knowledge appear reduced - Cranial Nerves: . II: PERRL . III/IV/: EOMI . V: facial sensation intact to LT . VII: face symmetric to eye closure and smile . VIII: hearing intact to conversation . IX/X: cannot test due to pt mentation . XI: cannot test due to pt mentation . XII: cannot test due to pt mentation - Motor/Sensory: . Tone: normal tone in all 4 extremity . withdraws all 4 extrem from pain, no focal weakness noted - Reflexes: B/L bic / - Coord: cannot test due to pt mentation - Gait: deferred - Labs: 03/09/19- Na 135 - Rads: 03/09/19- Brain MRI wwo: No acute infarct, hemorrhage, hydrocephalus, mass effect , abnormal intracranial enhancement, or herniation. Tiny focus of hemosiderin right side of the ady at the level of the cerebellar peduncle stable in appearance probably from tiny occult vascular malformation or remote trauma (I personally visualized the images on 03/10/19) - Assessment: 1. Confusion without focal deficits - 2. Lung Cancer on chemo therapy - 3. Seizure Disorder - 4. 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 I do not think this finding requires any additional evaluation at this time. - 5. Possible UTI: positive nitrities, growth on urine culture; defer to hospitalist if treatment needed or not - Plan: - Agree with plan to obtain spinal tap - Agree with oncology recs - EEG - Attempt to minimize narcotics and Elavil if possible as these can predispose to confusion Objective: Vital Signs Temp Pulse Resp BP Pulse Ox 36.6 C 96 19 129/72 H 96 03/10/19 03:35 03/10/19 08:00 03/10/19 03:35 03/10/19 03:35 03/10/19 08:00 Laboratory Results 03/10/19 05:40 03/10/19 05:40 03/09/19 03/10/19 03/11/19 05:59 05:59 05:59 Intake Total 340 Output Total 400 Balance -60 PT 13.3 SEC (12.0-15.0) 03/10/19 10:30 INR 1.05 (0.83-1.16) 03/10/19 10:30 Allergies/Adverse Reactions: eszopiclone [From Lunesta] Allergy (Verified 03/09/19 14:12) Other-Enter Comments topiramate [From Topamax] Allergy (Verified 03/09/19 14:12) Other-Enter Comments
--- NOTE | 2019-03-10 13:44 | SOAPPROG ---
SOAP Progress Note Assessment/Plan: Assessment: Change in mental status - The patient seems worse today. She is verbalizing in nonsensical syllables. MRI was negative. EEG is underway. LP to follow. Squamous cell Ca lung - s/p chemo. not yet started on immunotherapy. Plan: Check EEG Check LP Neuro eval appreciated. 03/10/19 13:40 Subjective: Not able to answer questions today. Objective: Vital Signs Temp Pulse Resp BP Pulse Ox 36.3 C 106 H 16 144/93 H 97 03/10/19 12:00 03/10/19 12:00 03/10/19 12:00 03/10/19 12:00 03/10/19 12:00 Laboratory Results 03/10/19 05:40 03/10/19 05:40 03/08/19 03/09/19 03/10/19 23:59 23:59 23:59 Intake Total 100 240 Output Total 400 Balance 100 -160 PT 13.3 SEC (12.0-15.0) 03/10/19 10:30 INR 1.05 (0.83-1.16) 03/10/19 10:30 Physical Exam - Physical Exam General Appearance: obtunded Neuro/Psych: No oriented x 3 ICD10 Worksheet Patient Problems: Problems Problem Status Onset Acute encephalopathy Acute Urinary tract infection Acute Altered mental status Acute Hemoptysis Acute
--- NOTE | 2019-03-10 14:49 | ASMTCMCOM ---
CM Note CM Note Notes: CM reviewed chart. Pt is a 68 year old male recently diagnosed with stage IIIc non-small cell lung cancer presents with confusion and increased SOB. RN reports that pt is having several procedure today. CM attempted several times to meet with pt but she was involved in testing. CM to follow. Plan: TBD Date Signed: 03/10/2019 02:48 PM Electronically Signed By:Merle Grady
--- NOTE | 2019-03-10 22:40 | CPEEG ---
[f rep st] ELECTROENCEPHALOGRAM INPATIENT EEG DATE OF STUDY: 03/10/2019 The EEG showed generalized slowing with a posterior dominant rhythm of 6 to 7 hertz. There are gener alized slow waves throughout the recording. There are no epileptiform discharges or seizure activity noted. IMPRESSION: Overall abnormal EEG consistent with generalized encephalopathy. No evidence of seizure activity or epileptiform discharges. /[id number]/MODL
[2019-03-10] MEDS: AMITRIPTYLINE HCL 10 MG TAB PO SCH (23:13)
--- NOTE | 2019-03-10 23:22 | HOSPPROG ---
Hospitalist Progress Note Assessment/Plan: Hospitalist night float note RN reporting patient with increased agitation, persistent confusion this evening and spitting out her pills at RN. Plan to hold her evening meds except for Keppra which will be given IV x1 dose ordered. Objective: Vital Signs Temp Pulse Resp BP Pulse Ox 36.2 C 98 20 137/93 H 99 03/10/19 22:54 03/10/19 22:54 03/10/19 22:54 03/10/19 22:54 03/10/19 22:54 Microbiology 03/10/19 15:55 Gram Stain - Final Cerebral Spinal Fluid Laboratory Results 03/10/19 05:40 03/10/19 05:40 03/09/19 03/10/19 03/11/19 05:59 05:59 05:59 Intake Total 340 Output Total 400 Balance -60 PT 13.3 SEC (12.0-15.0) 03/10/19 10:30 INR 1.05 (0.83-1.16) 03/10/19 10:30 ICD10 Worksheet Patient Problems: Problems Problem Status Onset Hemoptysis Acute Altered mental status Acute Urinary tract infection Acute Acute encephalopathy Acute
[2019-03-10] MEDS ORDERED: levETIRAcetam 250 MG in NS 100 ML IV ONE (23:45)
[2019-03-11] MEDS: levETIRAcetam 250 MG TAB PO SCH ×4 (00:05→22:01)
--- NOTE | 2019-03-11 08:25 | HOSPPROG ---
Hospitalist Progress Note Assessment/Plan: 68 yo F w lung cancer, SVC syndrome here w encephalopathy, expressive aphasia. acute encephalopathy with aphasia: presumed toxic metabolic, etiology unclear. Possibly polypharmacy, many meds held. MRI brain neg. EEG showed changes c/w encephalopathy, no seizures. LP relatively unremarkable. -check paraneoplastic auto-antibody eval on serum and csf -holding opiates, mirapex, reglan, also hold TCA -cytology pending on csf to r/o leptomeningeal mets, though would expect high protein on csf possible UTI - possibly cause of above, but seems less likely -cont ceftriaxone x3d squamous cell lung cancer: appears to have had excellent clinical response -oncology following, discussed with Dr. Vargas hypoxemia - suspect 2/2 above, O2 requirement 4 LPM --> 2 LPM this am, unclear if this is chronic. CXR pers reviewed, no acute infiltrate, elevated german- diaphragm noted SVC syndrome proph: high risk, start lovenox dispo: cont inpt Subjective: Pt up in chair, dozing. Awakens easily, acknowledges my explanation that she is in the hospital, says "ok", dozes off again and expresses serial moans. Really not interactive, but does follow basic commands. Objective: Vital Signs Temp Pulse Resp BP Pulse Ox 36.4 C 100 20 146/87 H 99 03/11/19 07:32 03/11/19 07:32 03/11/19 07:32 03/11/19 07:32 03/11/19 07:32 Microbiology 03/10/19 15:55 Gram Stain - Final Cerebral Spinal Fluid Laboratory Results 03/10/19 05:40 03/10/19 05:40 03/10/19 03/11/19 03/12/19 05:59 05:59 05:59 Intake Total 340 1000 Output Total 400 Balance -60 1000 PT 13.3 SEC (12.0-15.0) 03/10/19 10:30 INR 1.05 (0.83-1.16) 03/10/19 10:30 - Physical Exam Constitutional: chronically ill appearing Eyes: PERRL Ears, Nose, Mouth, Throat: moist mucous membranes Cardiovascular: regular rate and rhythym Respiratory: no respiratory distress, reduced air movement Gastrointestinal: normoactive bowel sounds, soft, non-tender abdomen Skin: warm Neurologic: other (no facial droop or focal neurologic deficits) Psychiatric: encephalopathic ICD10 Worksheet Patient Problems: Problems Problem Status Onset Acute encephalopathy Acute Urinary tract infection Acute Altered mental status Acute Hemoptysis Acute
--- NOTE | 2019-03-11 08:47 | PDMN ---
Medical Necessity Medical necessity: Change to IP, as of 03/10/19, per & MCG MG-N Neurology; los >2 mn for ongoing management of acute encephalopathy w/aphasia, presumed toxic metabolic, etiology unclear; requiring further workup/monitoring, med management & Neuro consult; hx lung cancer w/SVC syndrome
[2019-03-11] MEDS: INSULIN REGULAR HUMAN 100 UNIT/ML UNIT SC SCH ×4 (09:07→21:35)
--- NOTE | 2019-03-11 09:14 | NEUROPROG ---
Assessment: [id number] - Neurology Consult: - CC: F/U for Altered mental status, cancer - Narrative Summary: 03/10/19: Pt with recent diagnosis of stage IIIc non-small cell lung cancer presents w/confusion and increased SOB for 4-5 days prior do admission on . Pt was admitted for confusion in December 2018 felt to be secondary to a UTI. Patient has been undergoing chemotherapy. Dr. Vargas (oncology) saw the pt on 03/09/19 and recommend brain MRI wwo and spinal tap for further evaluation. Brain MRI wwo showed no cancer or any other acute issues to explain her symptoms. It did show an old stable small microbleed in the brainstem that does not seem likely to be causing her current symptoms. I do not think this finding requires any additional evaluation at this time. Pt also has a prior reported seizure disorder. Neurologic exam on 03/10/19 showed pt to be confused without any focal deficits. I was not sure what was causing the patients confusion but I agree with plan to obtain spinal tap. I will also get an EEG to assess for subclinical seizures. Pt is on multiple medications (narcotics, Elavil) and has multiple medical issues (cancer, heart failure, DM on insulin) which can predispose to confusion. Pt also has UA with nitrites and growth on urine culture so a UTI could predispose to confusion. - HPI: F/U 03/12/19. EEG showed generalized slowing consistent with encephalopathy but no seizure activity. Spinal tap was unremarkable but cytology is pending. At this time it is unclear what is causing the patients encephalopathy but I suspect it is probably related to her underlying cancer. Supportive care with continued search for any exacerbating factors (UTI, etc) is the best course of action. If oncology feels a paraneoplastic syndrome from underlying cancer is possible a paraneoplastic panel could be considered but this generally takes weeks to come back and typical treatment is aimed at addressing the underlying cancer so I am not sure it would global director air and climate change. Pts mentation does seem slightly better today (pt sitting in chair, responds to 1 step commands). - PMHx: heart failure, seizure disorder, recently diagnosed stage IIIC lung cacner , COPD, DM on insulin, peptic ulcer disease, TIA - SHx: former tobacco use FHx: no cancer - ROS: Pt denied acute fever, total vision loss, active severe chest pain, respiratory failure, total body severe rash, total bowel/bladder incontinence, psychosis, active seizures, or active bleeding - Labs: 03/10/19- CSF clear/colorless, WBC 0, RBC 3, Prot 49, Gluc 79 - Rads: 03/09/19- Brain MRI wwo: No acute infarct, hemorrhage, hydrocephalus, mass effect , abnormal intracranial enhancement, or herniation. Tiny focus of hemosiderin right side of the ady at the level of the cerebellar peduncle stable in appearance probably from tiny occult vascular malformation or remote trauma - 03/10/19- EEG: generalized slowing, no seizure activity - Assessment: 1. Encephalopathy - 2. Lung Cancer on chemotherapy - 3. History Seizure Disorder - 4. 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 I do not think this finding requires any additional evaluation at this time. - 5. Possible UTI: positive nitrites, growth on urine culture; defer to hospitalist if treatment needed or not - Plan: - Agree with oncology recs - Attempt to minimize narcotics and Elavil if possible as these can predispose to confusion - Neurology will continue to follow Objective: Vital Signs Temp Pulse Resp BP Pulse Ox 36.4 C 100 20 146/87 H 99 03/11/19 07:32 03/11/19 07:32 03/11/19 07:32 03/11/19 07:32 03/11/19 07:32 03/10/19 03/11/19 03/12/19 05:59 05:59 05:59 Intake Total 1000 Balance 1000 PT 13.3 SEC (12.0-15.0) 03/10/19 10:30 INR 1.05 (0.83-1.16) 03/10/19 10:30 Allergies/Adverse Reactions: eszopiclone [From Lunesta] Allergy (Verified 03/09/19 14:12) Other-Enter Comments topiramate [From Topamax] Allergy (Verified 03/09/19 14:12) Other-Enter Comments
--- NOTE | 2019-03-11 09:30 | ASMTCMCOM ---
CM Note CM Note Notes: CM met with Flor who experienced some agitation last evening spitting out her meds. Pt continues to be confuse and yelling out loud this morning. Pt was previously admitted with UTI and was confused then. Pt probably has a UTI this admission. Pt has two daughters. CM available for needs. PLAN: TBD Date Signed: 03/11/2019 09:28 AM Electronically Signed By:Carlie Bridges.RN,TEST EXAMINER
[2019-03-11] MEDS: guaiFENesin 600 MG TAB.ER PO SCH ×3 (10:14→22:02)
[2019-03-11] MEDS: ATORVASTATIN CALCIUM 20 MG TAB PO SCH ×2 (10:14→10:34)
[2019-03-11] MEDS: MONTELUKAST SODIUM 10 MG TAB PO SCH ×2 (10:14→10:38)
[2019-03-11] MEDS: FOLIC ACID 1 MG TAB PO SCH ×2 (10:14→10:36)
[2019-03-11] MEDS: PANTOPRAZOLE SODIUM 40 MG TAB PO SCH ×3 (10:15→22:02)
[2019-03-11] MEDS: DULoxetine 60 MG CAP PO SCH ×2 (10:15→10:35)
[2019-03-11] MEDS: ENOXAPARIN 40 MG/0.4 ML SYR SC SCH ×2 (10:37→11:05)
--- NOTE | 2019-03-11 11:39 | SOAPPROG ---
SOAP Progress Note Assessment/Plan: Assessment: Change in mental status - She continues to deteriorate. No clear etiology for encephalopathy so far. Agree with empiric acyclovir pending studies/cytology/ paraneoplastic panel. Squamous cell Ca lung - s/p chemo. not yet started on immunotherapy. Plan: Check studies as they come in. Agree with empiric acyclovir. Subjective: Does not awaken to voice today for me. Objective: Vital Signs Temp Pulse Resp BP Pulse Ox 36.5 C 92 16 158/75 H 96 03/11/19 11:24 03/11/19 11:24 03/11/19 11:24 03/11/19 11:24 03/11/19 11:24 03/09/19 03/10/19 03/11/19 23:59 23:59 23:59 Intake Total 1000 Balance 1000 PT 13.3 SEC (12.0-15.0) 03/10/19 10:30 INR 1.05 (0.83-1.16) 03/10/19 10:30 Physical Exam - Physical Exam General Appearance: obtunded Respiratory: lungs clear Cardiac/Chest: regular rate, rhythm Neuro/Psych: cognition abnormalities ICD10 Worksheet Patient Problems: Problems Problem Status Onset Acute encephalopathy Acute Urinary tract infection Acute Altered mental status Acute Hemoptysis Acute
[2019-03-11] MEDS: NS 1,000 ML IV SCH (17:32)
[2019-03-11] MEDS: INSULIN DEGLUDEC 16 UNIT SC SCH (21:34)
[2019-03-12] MEDS ORDERED: ALTEPLASE 2 MG VIAL IVP PRN (05:13)
--- NOTE | 2019-03-12 08:01 | SOAPPROG ---
SOAP Progress Note Assessment/Plan: Assessment: 1) Locally advanced NSC lung cancer 2) Altered mental status Plan: No clear cause for her altered mental status. I discussed her case with nursing. Her MS does wax and wane. Overall picture seems c/w toxic/metabolic encephalopathy. MRI and LP do not show any evidence of ORACLE TECHNICAL ARCHITECT involvement from her lung cancer as a cause. Paraneoplastic syndrome remains a remote possibility. The mainstay of treatment for a malignancy associated paraneoplastic syndrome is treatment of the underlying malignancy, which has already been done. IVIG could be considered if there is no improvement over the next few days, however it's effectiveness in this setting is marginal at best. Neurology following. Case d/w nursing. Subjective: Confusion persists and appears to wax and wane Objective: Vital Signs Temp Pulse Resp BP Pulse Ox 36.7 C 98 20 140/78 H 95 03/12/19 02:52 03/12/19 02:52 03/12/19 02:52 03/12/19 02:52 03/12/19 02:52 03/11/19 03/12/19 03/13/19 05:59 05:59 05:59 Intake Total 1000 803 Balance 1000 803 PT 13.3 SEC (12.0-15.0) 03/10/19 10:30 INR 1.05 (0.83-1.16) 03/10/19 10:30 - Time Spent With Patient Time Spent With Patient: 25 minutes Physical Exam - Physical Exam Skin: No rash Neuro/Psych: other (Opens eyes to voice. Can state her name when asked, otherwise does not answer questions or follow commands. Moves all 4 extremities. ) ICD10 Worksheet Patient Problems: Problems Problem Status Onset Acute encephalopathy Acute Urinary tract infection Acute Altered mental status Acute Hemoptysis Acute
[2019-03-12 08:43] LABS: PLATELET COUNT 134 10^3/uL (150-400)
[2019-03-12] MEDS: INSULIN REGULAR HUMAN 100 UNIT/ML UNIT SC SCH ×4 (09:39→22:13)
[2019-03-12] MEDS: DULoxetine 60 MG CAP PO SCH (09:41)
[2019-03-12] MEDS: ATORVASTATIN CALCIUM 20 MG TAB PO SCH (09:41)
[2019-03-12] MEDS: MONTELUKAST SODIUM 10 MG TAB PO SCH (09:42)
[2019-03-12] MEDS: FOLIC ACID 1 MG TAB PO SCH (09:42)
[2019-03-12] MEDS: ENOXAPARIN 40 MG/0.4 ML SYR SC SCH (09:45)
[2019-03-12] MEDS: levETIRAcetam 250 MG TAB PO SCH ×2 (09:46→20:09)
[2019-03-12] MEDS: guaiFENesin 600 MG TAB.ER PO SCH ×2 (09:46→20:09)
[2019-03-12] MEDS: PANTOPRAZOLE SODIUM 40 MG TAB PO SCH ×2 (09:47→20:09)
--- NOTE | 2019-03-12 09:47 | HOSPPROG ---
Hospitalist Progress Note Assessment/Plan: 68 yo F w lung cancer, SVC syndrome here w encephalopathy. acute encephalopathy: presumed toxic metabolic, etiology unclear. Possibly polypharmacy, many meds held. MRI brain neg. EEG showed changes c/w encephalopathy, no seizures. LP relatively unremarkable. Seems a bit better today, more interactive. -paraneoplastic auto-antibody eval on serum and csf pending -holding opiates, mirapex, reglan, also held TCA yest -cytology pending on csf to r/o leptomeningeal mets, though would expect high protein on csf possible UTI - could be cause of above -cont ceftriaxone squamous cell lung cancer: appears to have had excellent clinical response -oncology following hypoxemia - suspect 2/2 above, O2 requirement 4 LPM --> 2 LPM this am, unclear if this is chronic. CXR pers reviewed, no acute infiltrate, elevated german- diaphragm noted SVC syndrome proph: lovenox dispo: cont inpt Subjective: Pt resting in bed, awakens to her name. Opens her eyes, answers several questions. More interactive. No fevers. Says she has pain all over. No focal CP or SOB. Objective: Vital Signs Temp Pulse Resp BP Pulse Ox 35.8 C L 95 24 H 146/73 H 95 03/12/19 08:00 03/12/19 08:00 03/12/19 08:00 03/12/19 08:00 03/12/19 08:00 Laboratory Results 03/12/19 08:30 03/12/19 08:30 03/11/19 03/12/19 03/13/19 05:59 05:59 05:59 Intake Total 1000 803 Balance 1000 803 PT 13.3 SEC (12.0-15.0) 03/10/19 10:30 INR 1.05 (0.83-1.16) 03/10/19 10:30 - Physical Exam Constitutional: no apparent distress Eyes: PERRL Ears, Nose, Mouth, Throat: moist mucous membranes Cardiovascular: regular rate and rhythym Respiratory: no respiratory distress Gastrointestinal: normoactive bowel sounds, soft, non-tender abdomen Skin: warm Musculoskeletal: full muscle strength Psychiatric: encephalopathic ICD10 Worksheet Patient Problems: Problems Problem Status Onset Acute encephalopathy Acute Urinary tract infection Acute Altered mental status Acute Hemoptysis Acute
[2019-03-12] MEDS ORDERED: POTASSIUM CL 20 MEQ TAB PO ONE (09:48)
--- NOTE | 2019-03-12 12:10 | ASMTCMCOM ---
CM Note CM Note Notes: CM met with Pt but she is extremely confused and moaning outloud. Pt continues on IV fluids. CM available for needs. PLAN: TBD Date Signed: 03/12/2019 12:09 PM Electronically Signed By:Carlie Bridges.RN,TRIAGE CLINICIAN
--- NOTE | 2019-03-12 12:34 | NEUROPROG ---
Assessment: [id number] - Neurology Consult: - CC: F/U for Altered mental status, cancer - Narrative Summary: 03/10/19: Pt with recent diagnosis of stage IIIc non-small cell lung cancer presents w/confusion and increased SOB for 4-5 days prior do admission on . Pt was admitted for confusion in December 2018 felt to be secondary to a UTI. Patient has been undergoing chemotherapy. Dr. Vargas (oncology) saw the pt on 03/09/19 and recommend brain MRI wwo and spinal tap for further evaluation. Brain MRI wwo showed no cancer or any other acute issues to explain her symptoms. It did show an old stable small microbleed in the brainstem that does not seem likely to be causing her current symptoms. I do not think this finding requires any additional evaluation at this time. Pt also has a prior reported seizure disorder. Neurologic exam on 03/10/19 showed pt to be confused without any focal deficits. I was not sure what was causing the patients confusion but I agree with plan to obtain spinal tap. I will also get an EEG to assess for subclinical seizures. Pt is on multiple medications (narcotics, Elavil) and has multiple medical issues (cancer, heart failure, DM on insulin) which can predispose to confusion. Pt also has UA with nitrites and growth on urine culture so a UTI could predispose to confusion. - F/U 03/11/19. EEG showed generalized slowing consistent with encephalopathy but no seizure activity. Spinal tap was unremarkable but cytology is pending. At this time it is unclear what is causing the patients encephalopathy but I suspect it is probably related to her underlying cancer. Supportive care with continued search for any exacerbating factors (UTI, etc) is the best course of action. If oncology feels a paraneoplastic syndrome from underlying cancer is possible a paraneoplastic panel could be considered but this generally takes weeks to come back and typical treatment is aimed at addressing the underlying cancer so I am not sure it would spinning frame changer. Pts mentation does seem slightly better today (pt sitting in chair, responds to 1 step commands). - HPI: F/U 03/12/19. Pt still confused but seems slightly more awake today, can say her full name. Paraneoplastic panel sent. Pt still has altered mental status felt most consistent with toxic-metabolic encephalopathy. Possible causes would be a paraneoplastic syndrome from underlying cancer. Oncology feels IVIG could be considered in the next few days if pt does not improve. At this time this seems to be a reasonable plan. I do not have any further recs so I will sign off but will be happy to get re-involved if needed. - PMHx: heart failure, seizure disorder, recently diagnosed stage IIIC lung cacner , COPD, DM on insulin, peptic ulcer disease, TIA - SHx: former tobacco use FHx: no cancer - ROS: Pt denied acute fever, total vision loss, active severe chest pain, respiratory failure, total body severe rash, total bowel/bladder incontinence, psychosis, active seizures, or active bleeding - Labs: 03/10/19- CSF clear/colorless, WBC 0, RBC 3, Prot 49, Gluc 79 - Rads: 03/09/19- Brain MRI wwo: No acute infarct, hemorrhage, hydrocephalus, mass effect , abnormal intracranial enhancement, or herniation. Tiny focus of hemosiderin right side of the ady at the level of the cerebellar peduncle stable in appearance probably from tiny occult vascular malformation or remote trauma - 03/10/19- EEG: generalized slowing, no seizure activity - Assessment: 1. Encephalopathy - 2. Lung Cancer on chemotherapy - 3. 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 I do not think this finding requires any additional evaluation at this time. - Plan: - Agree with oncology recs, IVIG could be considered in the next few days if no improvement as pt may have a paraneoplastic syndrome - Paraneoplastic labs and csf cytology pending - Neurology will sign off but will be happy to get re-involved if needed - 35 min spent with patient in addition to coordinating care for this complex pt. Objective: Vital Signs Temp Pulse Resp BP Pulse Ox 36.3 C 95 26 H 159/83 H 96 03/12/19 11:31 03/12/19 11:31 03/12/19 11:31 03/12/19 11:31 03/12/19 11:31 Laboratory Results 03/12/19 08:30 03/12/19 08:30 03/11/19 03/12/19 03/13/19 05:59 05:59 05:59 Intake Total 1000 803 Balance 1000 803 PT 13.3 SEC (12.0-15.0) 03/10/19 10:30 INR 1.05 (0.83-1.16) 03/10/19 10:30 Allergies/Adverse Reactions: eszopiclone [From Lunesta] Allergy (Verified 03/09/19 14:12) Other-Enter Comments topiramate [From Topamax] Allergy (Verified 03/09/19 14:12) Other-Enter Comments
[2019-03-12] MEDS: KETOROLAC 15 MG/1 ML SDV IVP PRN ×2 (13:04→19:37)
[2019-03-12] MEDS: INSULIN DEGLUDEC 16 UNIT SC SCH (22:13)
[2019-03-12] MEDS: NS 1,000 ML IV SCH (23:15)
[2019-03-13] MEDS ORDERED: PROTOCOL POTASSIUM 1 DOSE MISC PRN (06:34)
[2019-03-13] MEDS: IPRATROPIUM/ALBUTEROL 3 ML DEYVIAL IH PRN ×2 (07:29→18:23)
--- NOTE | 2019-03-13 09:06 | SOAPPROG ---
SOAP Progress Note Assessment/Plan: Assessment: 1) Locally advanced NSC lung cancer 2) Altered mental status (improved) Plan: Flor is dramatically better today. She is oriented x 3, and answers questions appropriately. Overall picture seems c/w toxic/metabolic encephalopathy with narcotic pain medication as the probable main contributing factor. MRI and LP do not show any evidence of TV TECHNICIAN involvement from her lung cancer as a cause. Plan to continue supportive care. Anticipate gradual and continued recovery. 03/13/19 09:03 Subjective: Much better today. Alert, oriented and conversant. Denies pain. Objective: Vital Signs Temp Pulse Resp BP Pulse Ox 36.2 C 86 18 162/66 H 98 03/13/19 07:20 03/13/19 07:29 03/13/19 07:29 03/13/19 07:20 03/13/19 07:29 Laboratory Results 03/12/19 08:30 03/13/19 04:12 03/12/19 03/13/19 03/14/19 05:59 05:59 05:59 Intake Total 803 2841 Balance 803 2841 PT 13.3 SEC (12.0-15.0) 03/10/19 10:30 INR 1.05 (0.83-1.16) 03/10/19 10:30 - Time Spent With Patient Time Spent With Patient: 20 minutes Physical Exam - Physical Exam General Appearance: alert, no apparent distress EENT: No scleral icterus (R), No scleral icterus (L), No pale conjunctiva (R), No pale conjunctiva (L) Abdomen: non-tender, soft Skin: normal color Neuro/Psych: alert, normal mood/affect, oriented x 3, No speech abnormalities, No disoriented to person, No disoriented to place, No disoriented to time ICD10 Worksheet Patient Problems: Problems Problem Status Onset Acute encephalopathy Acute Urinary tract infection Acute Altered mental status Acute Hemoptysis Acute
[2019-03-13] MEDS ORDERED: POTASSIUM CL 10 MEQ TAB PO ONE ×2 (09:08→19:56)
[2019-03-13] MEDS: DULoxetine 60 MG CAP PO SCH (09:26)
[2019-03-13] MEDS: DIPHENOXYLATE/ATROPINE LOMOTIL 1 TAB PO PRN (09:30)
[2019-03-13] MEDS: FOLIC ACID 1 MG TAB PO SCH (09:30)
[2019-03-13] MEDS: guaiFENesin 600 MG TAB.ER PO SCH ×2 (09:31→20:08)
[2019-03-13] MEDS: levETIRAcetam 250 MG TAB PO SCH ×2 (09:31→20:08)
[2019-03-13] MEDS: ATORVASTATIN CALCIUM 20 MG TAB PO SCH (09:31)
[2019-03-13] MEDS: ENOXAPARIN 40 MG/0.4 ML SYR SC SCH (09:32)
[2019-03-13] MEDS: INSULIN REGULAR HUMAN 100 UNIT/ML UNIT SC SCH ×4 (09:33→20:17)
[2019-03-13] MEDS: PANTOPRAZOLE SODIUM 40 MG TAB PO SCH ×2 (10:18→20:08)
[2019-03-13] MEDS: MONTELUKAST SODIUM 10 MG TAB PO SCH (10:18)
[2019-03-13] MEDS: ACETAMINOPHEN 325 MG TAB PO PRN (10:20)
[2019-03-13] MEDS: KETOROLAC 15 MG/1 ML SDV IVP PRN ×2 (10:25→22:45)
--- NOTE | 2019-03-13 11:20 | HOSPPROG ---
Hospitalist Progress Note Assessment/Plan: 68 yo F w lung cancer, SVC syndrome here w acute encephalopathy. acute encephalopathy: improved, presumed toxic metabolic, suspect polypharmacy, many meds held. MRI brain neg. EEG showed changes c/w encephalopathy, no seizures. LP relatively unremarkable. Much better today, conversing more appropriately, asking for her pain meds -paraneoplastic auto-antibody eval on serum and csf pending -holding opiates, mirapex, reglan, TCA -will need to restart her pain meds, but will cont to hold MS Contin (and consider d/c indefinitely), resume short acting percocet with close attention to mental status -cytology pending on csf to r/o leptomeningeal mets, though would expect high protein on csf possible UTI - could be cause of encephalopathy -s/p 3 d IV Ceftriaxone squamous cell lung cancer: appears to have had excellent clinical response -oncology following chronic pain: as above, cont to hold (and recommend d/c) long acting opiates, resume percocet at lower dose diarrhea: suspect opioid w/d. Note recent +C diff (01/29/2019) s/p flagyl, neg C diff here 03/11. No fever, leukocytosis or abdominal pain. -hoping this will improve with resumption of percocet -prn lomotil chronic hypoxemic resp failure: 2/2 COPD and HF, on 4 LPM chronically. CXR pers reviewed, no acute infiltrate, elevated german-diaphragm noted. Appears euvolemic. -bumex has been held, will resume at lower dose for now SVC syndrome proph: lovenox dispo: cont inpt, PT/OT recommending SNF Subjective: Pt more awake, alert, interacting more appropriately. Complains of pain, wants her pain meds restarted. Appetite fair. Breathing at baseline. Denies CP or SOB. No fevers. Denies urinary symptoms. No abdominal pain. Objective: Vital Signs Temp Pulse Resp BP Pulse Ox 36.2 C 86 18 162/66 H 98 03/13/19 07:20 03/13/19 07:29 03/13/19 07:29 03/13/19 07:20 03/13/19 07:29 Laboratory Results 03/12/19 08:30 03/13/19 04:12 03/12/19 03/13/19 03/14/19 05:59 05:59 05:59 Intake Total 803 2841 Balance 803 2841 PT 13.3 SEC (12.0-15.0) 03/10/19 10:30 INR 1.05 (0.83-1.16) 03/10/19 10:30 - Physical Exam Constitutional: no apparent distress Eyes: PERRL Ears, Nose, Mouth, Throat: moist mucous membranes Cardiovascular: regular rate and rhythym Respiratory: no respiratory distress, reduced air movement Gastrointestinal: normoactive bowel sounds, soft, non-tender abdomen Skin: warm Musculoskeletal: generalized weakness Neurologic: AAOx3 Psychiatric: poor insight, poor memory ICD10 Worksheet Patient Problems: Problems Problem Status Onset Acute encephalopathy Acute Urinary tract infection Acute Altered mental status Acute Hemoptysis Acute
[2019-03-13] MEDS ORDERED: BUMETANIDE 2 MG TAB PO SCH (11:51)
[2019-03-13] MEDS: OXYCODONE/APAP 5/325 TAB PO PRN ×4 (12:03→22:41)
--- NOTE | 2019-03-13 12:37 | ASMTCMCOM ---
CM Note CM Note Notes: CM met with pt and her daughter Mary to discuss PT/OT's recommendation of SNF. They are in agreement with it. CM gave daughter information about SNFs and will check with her tomorrow to see which she would like us to put in referrals for. CM will continue to follow. HEIKE D/C plan: SNF Date Signed: 03/13/2019 12:36 PM Electronically Signed By:Sharlene Flores.[email or web address]
[2019-03-13] MEDS: INSULIN DEGLUDEC 16 UNIT SC SCH (20:16)
[2019-03-14] MEDS: OXYCODONE/APAP 5/325 TAB PO PRN ×4 (02:20→16:25)
[2019-03-14] MEDS: KETOROLAC 15 MG/1 ML SDV IVP PRN ×2 (04:45→10:32)
[2019-03-14] MEDS ORDERED: POTASSIUM CL 10 MEQ TAB PO ONE (07:47)
[2019-03-14] MEDS: DIPHENOXYLATE/ATROPINE LOMOTIL 1 TAB PO PRN ×2 (08:02→16:27)
[2019-03-14] MEDS: ENOXAPARIN 40 MG/0.4 ML SYR SC SCH (08:02)
[2019-03-14] MEDS: FOLIC ACID 1 MG TAB PO SCH (08:03)
[2019-03-14] MEDS: PANTOPRAZOLE SODIUM 40 MG TAB PO SCH (08:03)
[2019-03-14] MEDS: DULoxetine 60 MG CAP PO SCH (08:03)
[2019-03-14] MEDS: MONTELUKAST SODIUM 10 MG TAB PO SCH (08:03)
[2019-03-14] MEDS: guaiFENesin 600 MG TAB.ER PO SCH (08:03)
[2019-03-14] MEDS: levETIRAcetam 250 MG TAB PO SCH (08:03)
[2019-03-14] MEDS: INSULIN REGULAR HUMAN 100 UNIT/ML UNIT SC SCH ×3 (08:04→19:09)
[2019-03-14] MEDS: ATORVASTATIN CALCIUM 20 MG TAB PO SCH (08:04)
--- NOTE | 2019-03-14 13:03 | PDDCSUM ---
Discharge Summary Discharge Summary: DISCHARGE DIAGNOSES: * Acute MetabolicEncephalopathy * Chronic Pain (fibromyalgia, cancer) with Chronic prescribed narcotic depenency * Polypharmacy (2 narcotics/reglan/cymbalta/mirapex/elavil at home) * Squamous Cell Lung CA * Minimal pyuria of doubtful significance * Chronic Hypoxemic REsp failure/COPD/CHF -stable at baseline * Hx of SVC syndrome * History of NSAID induced gastropathy with GI bleed STUDIES: MRI brain with no acute change EEG with evidence of encephalopathy lumbar puncture with csf analysis HOSPITAL COURSE: This patient comes in to the hospital with acute confusion, with a history of similar presentations in the past. The main findings felt to be causative are polypharmacy as well as inadequate management of medication administration at home. She had minimal pyuria but no symptoms, no fever, and this is felt to not be related. She has stage III squamous cell lung ca but MRI brain was unrevealing, and spinal fluid negative. There have been no other significant findings. Her sedating medicines were reduced significantly here and she was hydrated, and she is now back to baseline mentation with these conservative measures (wide awake, talkative, oriented, ambulating, ordering meals and eating independently, ADLs independent. It is felt that the patient's recurrent episodes of sedation and confusion or caused by medications with possible contribution from minor physiologic perturbations. In reviewing the patient's medicines with her it is clear that she knows them all by name, knows why she takes them, nose there possible side effects, knows the doses, and can very clearly tell me how and when she takes each 1 of the medicines. She does take them from the bottles, has not in the past used a pill calendar or other assistive device, and she has had no assistance from family your others to monitor the use of her medicines. In terms of the Percocet she takes, she takes a 10 mg tablet total of 2-4 per day for breakthrough pain on top of her current dose of morphine total 60 mg per day. These medicines treat an ache in her chest and back which is caused by her cancer. She also takes duloxetine and this treats fibromyalgia pain for her. She is taking Elavil 10 mg for sleep at night and says she sleeps quite well through most nights. She takes Reglan for gastroparesis which she finds quite bothersome and the medicine quite effective, and she takes Mirapex for restless leg syndrome another syndrome she finds very bothersome with good effect from the medicine. She does not have any pain that sounds like a neuropathic pain or an inflammatory pain. She has history of ulcers and GI bleed caused by NSAIDs. After reviewing her medicines and her medical issues as well as her ability to manage things at home, and we agreed on some changes heard medicines at this time. These will need to be followed closely with Dr. Palmer who is her primary prescribing physician at this point. In addition we she and I have agreed that home nursing to help monitor things for appeared of time will be very useful as well. Will change morphine from 30 mg twice daily to 20 mg long- acting twice daily. Will prescribe a 24 hr tramadol tablet 200 mg per day. She will use half of a 10 mg Percocet tablet as needed for breakthrough pain, and as she comes to the end of the current bottle she can have a prescription for [address] Palmer. As Elavil will cause drowsiness during the daytime for her, will change this to trazodone 50 mg at bedtime. This can be changed to a 25 mg if necessary. The other sedating medicines may need further changes but I believe that making these changes will be of benefit and minimize aggravation of her underlying syndromes which are multiple. FOLLOW UP: with Dr Palmer later this week or next week MEDICATION CHANGES: Morphine ER changed from 30 mg BID to 20 mg twice daily Tramadol 200 mg per day added Percocet decreased to 1/2 of a 10 mg tablet as needed for breakthrough Elavil discontinued Trazodone 50 mg at bedtime for sleep Continue her Cymbalta for fibromyalgia pain, Mirapex for restless legs, Reglan for gastroparesis, though changes in these medicines may be necessary if she continues to have sedation or confusion episodes
--- NOTE | 2019-03-14 14:17 | PDIAF ---
- Diagnosis Diagnosis: sedation/polypharmacy/chronic pain, stage3 lung ca, fibromyalgia restless l Code Status: Full Code - Medication Management Discharge Medications: electronically signed and located in the Home Medication List. - Orders Services needed: Home Care, Registered Nurse, Physical Therapy Home Care Face to Face: I certify that this patient was under my care and that I had the required [id number] encounter meeting the encounter requirements on the discharge day. My findings support the fact that the patient is homebound as defined in Home Care Face to Face Continued: CMS Chapter 7 Medicare Benefits Manual 30.1.1 , The condition of the patient is such that there exists a normal inability to leave home and consequently, leaving home would require a considerable and taxing effort. Isolation Type: None Diet Recommendation: no restrictions on diet Diet Texture: Regular Texture Diet Activity/Weight Bearing Restrictions: Full weight-bearing, walker recommended Additional Instructions: Keep well hydrated make an appointment to see Dr Palmer in the next two weeks Use of either pill count does or other assistive devices for managing her multiple medications is recommended - Follow Up Care Current Providers and Referrals: NONE *PRIMARY CARE P,. [Primary Care Provider] - As per Instructions
[2019-03-14] MEDS: IPRATROPIUM/ALBUTEROL 3 ML DEYVIAL IH PRN (15:24)
[2019-03-14 15:48] VITALS: BP 132/68
[2019-03-14] MEDS: ACETAMINOPHEN 325 MG TAB PO PRN (16:27)
--- NOTE | 2019-03-14 16:38 | SOAPPROG ---
SOAP Progress Note Assessment/Plan: Assessment/Plan: Patient is a 68-year-old female with a history of stage III lung cancer status post chemoradiation who presents for encephalopathy of unknown etiology. 1.Encephalopathy Unknown etiology at this time. [place] to be related to chronic narcotic use however patient vehemently denies and is upset that we continue to blame her narcotic pain medications for these episodes. She has had a very extensive evaluation has been unremarkable up to this point otherwise. She has made a dramatic recovery in her mentation and anticipate discharge from the hospital. She can follow-up with Dr. Palmer as an outpatient 03/14/19 16:34 Subjective: Patient reports feeling well. She denies fevers chills drenching night sweats. She is alert and oriented x3. She is quite irritated as she is concerned that people continue to blame her MS Contin for her recurrent bouts of encephalopathy. Objective: Vital Signs Temp Pulse Resp BP Pulse Ox 36.6 C 90 18 132/68 H 95 03/14/19 15:48 03/14/19 15:48 03/14/19 15:48 03/14/19 15:48 03/14/19 15:48 Laboratory Results 03/12/19 08:30 03/14/19 05:00 03/13/19 03/14/19 03/15/19 05:59 05:59 05:59 Intake Total 2841 400 Output Total 400 Balance 2841 0 PT 13.3 SEC (12.0-15.0) 03/10/19 10:30 INR 1.05 (0.83-1.16) 03/10/19 10:30 Physical examination: General: No acute distress nontoxic-appearing female Neck: Supple without any rigidity Cardiovascular: Regular rate and rhythm without rubs thrills gallops or murmurs Chest: Clear anteriorly Abdomen: Soft nontender Extremities: Warm well perfused 2+ dorsalis pedis and radial pulses bilaterally Neurologic: Alert and oriented x4 ICD10 Worksheet Patient Problems: Problems Problem Status Onset Acute encephalopathy Acute Urinary tract infection Acute Altered mental status Acute Hemoptysis Acute
--- NOTE | 2019-03-14 17:40 | ASMTDCNOTE ---
Case Management Discharge Discharge Order Complete? Answers: Yes Patient to Obtain Answers: Independently Medications Transportation Arranged Answers: Family/Friends Transport will Pick (Date 03/14/2019 12:00 AM & Time) Faxed Final Orders Answers: Yes Notes: [facility]/Facility Transfer Answers: Yes Notes: [facility] Report Printed & Faxed to Receiving Agency Family Notified Answers: Yes Notes: Mary, daughter Discharge Comments Notes: Patient is discharging home with [facility] today. Patient's daughter and MDPOA was notified and will pick her up and transport her home. [facility] was given request of family that the RN will teach the granddaughter (age 25) how and when to dispense the patient's medications using a pill counter. The patient is in agreement. Discharge summaries have been Allscripted along with the home medication report. Patient's nurse will also go over this in the discharge paperwork. No further needs. Date Signed: 03/14/2019 05:39 PM Electronically Signed By:Alysa Whitaker LCSW
--- NOTE | 2019-03-14 17:43 | ASDISCHSUM ---
Discharge Information Plan Status:Home with Home Health Medically Cleared to Leave:03/14/2019 Discharge Date:03/14/2019 CM D/C Disposition:Home Health Service ADT D/C Disposition:Home Health Service Projected Discharge Date:03/14/2019 11:00 AM Transportation at D/C:Family Discharge Delay Reason: Follow-Up Date:03/14/2019 11:00 AM Discharge Slot:2 - 12:01 pm - 18:00 pm Final Diagnosis:UTI, altered mental status, hemoptysis Placement Information Referral Type:*Longterm/SNF Referral ID:[id number] Provider Name: Address 1: Phone Number: Address 2: Fax Number: City: Selection Factors: State: Referral Type:*Home Health Care Services Referral ID:[facility]-[id number] Provider Name:[facility] ([facility]) Address 1:[address] Address 2: City:[place] Selection Factors: State:[place] Patient Contact Information Contact Name:HEATHER Relationship:Daughter Address: Work Phone: City:[place] [facility] Phone: [facility]/Zip Code:[place] Email: Financial Information Financial Class:Medicare Primary Plan Desc:MEDICARE INPATIENT Primary Plan Number:[id number] Secondary Plan Desc:[facility] Secondary Plan Number:[id number] Assessment Information LACE LACE Acuity / Level of Answers: Yes Care: Did the patient have an inpatient admission? Comorbidities - select Answers: Any tumor (including all that apply lymphoma or leukemia) Chronic pulmonary disease Congestive heart failure Diabetes (uncontrolled or controlled) Mild liver or renal disease Opioid dependence / Chronic pain # of Emergency department Answers: 3-4 visits in the last 6 months Score: 19 Date Signed: 03/09/2019 01:44 PM Electronically Signed By:Barbara Connors [facility] CM Progress Note CM Note CM Note Notes: CM reviewed chart. Pt is a 68 year old male recently diagnosed with stage IIIc non-small cell lung cancer presents with confusion and increased SOB. RN reports that pt is having several procedure today. CM attempted several times to meet with pt but she was involved in testing. CM to follow. Plan: TBD Date Signed: 03/10/2019 02:48 PM Electronically Signed By:Merle Grady [facility] CM Progress Note CM Note CM Note Notes: CM met with Flor who experienced some agitation last evening spitting out her meds. Pt continues to be confuse and yelling out loud this morning. Pt was previously admitted with UTI and was confused then. Pt probably has a UTI this admission. Pt has two daughters. CM available for needs. PLAN: TBD Date Signed: 03/11/2019 09:28 AM Electronically Signed By:Carlie Bridges.RUIZ,PLUMBER GASFITTER [facility] CM Progress Note CM Note CM Note Notes: CM met with Pt but she is extremely confused and moaning outloud. Pt continues on IV fluids. CM available for needs. PLAN: TBD Date Signed: 03/12/2019 12:09 PM Electronically Signed By:Carlie Bridges.RUIZ,PLUMBER GASFITTER [facility] Progress Note CM Note CM Note Notes: CM met with pt and her daughter Mary to discuss PT/OT's recommendation of SNF. They are in agreement with it. CM gave daughter information about SNFs and will check with her tomorrow to see which she would like us to put in referrals for. [facility] will continue to follow. CM D/C plan: SNF Date Signed: 03/13/2019 12:36 PM Electronically Signed By:Sharlene Lopes Case Management Discharge Plan Note Case Management Discharge Discharge Order Complete? Answers: Yes Patient to Obtain Answers: Independently Medications Transportation Arranged Answers: Family/Friends Transport will Pick (Date 03/14/2019 12:00 AM & Time) Faxed Final Orders Answers: Yes Notes: [facility]/Facility Transfer Answers: Yes Notes: [facility] Report Printed & Faxed to Receiving Agency Family Notified Answers: Yes Notes: Mary daughter Discharge Comments Notes: Patient is discharging home with [facility] today. Patient's daughter and MDPOA was notified and will pick her up and transport her home. [facility] was given request of family that the RN will teach the granddaughter (age 25) how and when to dispense the patient's medications using a pill counter. The patient is in agreement. Discharge summaries have been Allscripted along with the home medication report. Patient's nurse will also go over this in the discharge paperwork. No further needs. Date Signed: 03/14/2019 05:39 PM Electronically Signed By:Alysa Whitaker LCSW Intervention Information Intervention Type:*Incorrect Registration Date of Service:03/09/2019 04:46 PM Patient Type:Observation Staff Member:RUIZ Payne, [facility] Hours: Discipline: Severity: Comment: Intervention Type:CAUSEY-Not Delivered Date of Service:03/11/2019 07:53 AM Patient Type:Observation Staff Member:Barbara Connors Hours: Discipline: Severity: Comment:Patient stated she was too sick to rev iew the Medicare form. By the time I returned to her room later, she was switched to inpatient status.
== END 2019-03-14 20:13 | disposition home health service (06) | DRG 92 ==
LOC: INTOOBSV 11:36 → F1N 13:16 → OBSVTOIN 03-10 16:32
PROVIDERS: ADMIT Internal Medicine; ATTEND Internal Medicine
PROC: 009U3ZX Drainage of Spinal Canal, Percutaneous Approach, Diagnostic (ICD-10-PCS; principal; 2019-03-10)
DX: G92 Toxic encephalopathy (principal); J44.9 Chronic obstructive pulmonary disease, unspecified; J96.11 Chronic respiratory failure with hypoxia; E11.9 Type 2 diabetes mellitus without complications; N39.0 Urinary tract infection, site not specified; G89.3 Neoplasm related pain (acute) (chronic); F11.20 Opioid dependence, uncomplicated; I50.9 Heart failure, unspecified; G40.909 Epilepsy, unspecified, not intractable, without status epilepticus; Z99.81 Dependence on supplemental oxygen; Z85.118 Personal history of other malignant neoplasm of bronchus and lung; Z79.4 Long term (current) use of insulin; Z87.891 Personal history of nicotine dependence
CPT/HCPCS: 82607-90; 82947-QW; 92526-GN; 92610-GN; 96365; 97161-GP; 97166-GO; 97530-GP; 97535-GO; A9585; G0378; J0696; J1642; J1650; J1815; J1885; J1953; J2270; J2997

== ENCOUNTER 2019-03-21 11:04 | Inpatient (IN) | payer OTHER, BC | END 2019-03-23 13:09 | LOC: F3E 15:28 ==